=== PATIENT | female | born 1945 | race Caucasian/White ===

== ENCOUNTER 2017-11-18 16:37 | Observation (INO) | payer MEDICARE ==
[2017-11-18] MEDS ORDERED: SODIUM CHLORIDE 0.9% 500 ML IV STA (16:46)
[2017-11-18] MEDS ORDERED: SODIUM CHLORIDE 0.9% 1,000 ML IV STA (16:46)
[2017-11-18] MEDS ORDERED: RX INFO: IV CONTRAST WAS GIVEN 1 EACH MISC MISCELLANE PRN (16:46)
[2017-11-18 16:54] LABS: Glucose,Whole Blood 101 mg/dL (75-99)
[2017-11-18] MEDS ORDERED: ASPIRIN 325 MG TAB PO STA (16:59)
--- NOTE | 2017-11-18 16:59 | ED ---
General Adult HPI - General Chief complaint: Neuro Symptoms/Deficit Stated complaint: Facial Numbness Time Seen by Provider: 11/18/17 16:46 Source: patient, family, RN notes reviewed, old records reviewed Mode of arrival: wheelchair Limitations: no limitations - History of Present Illness Initial comments: This is a 72-year-old female to the ER for evaluation today. This patient presents for evaluation regards to neurological complaint right-sided facial numbness. Patient also spells like she felt a taxi to the right. Patient has history of Parkinson's disease occasionally gets significant neurological issues. Patient denies headache chest pain shortness of breath. No abdominal pain. No recent change in medications, symptoms started this morning with her legs and then about an hour prior to arrival with her face. - Related Data Home Medications Medication Instructions Recorded Confirmed Aspirin 325 mg PO DAILY 11/18/17 11/18/17 Carbidopa-Levodopa 10-100 mg 1 tab PO TID 11/18/17 11/18/17 [Sinemet 10-100] Carvedilol [Coreg] 6.25 mg PO BID 11/18/17 11/18/17 Clopidogrel [Plavix] 75 mg PO DAILY 11/18/17 11/18/17 Indomethacin [Indocin] 25 mg PO TID PRN 11/18/17 11/18/17 Lisinopril [Zestril] 2.5 mg PO DAILY 11/18/17 11/18/17 Nitroglycerin Sl Tabs [Nitrostat] 0.4 mg SUBLINGUAL Q5M PRN 11/18/17 11/18/17 Simvastatin [Zocor] 40 mg PO HS 11/18/17 11/18/17 Allergies Allergy/AdvReac Type Severity Reaction Status Date / Time No Known Allergies Allergy Verified 11/18/17 16:54 Review of Systems ROS Statement: Those systems with pertinent positive or pertinent negative responses have been documented in the HPI. ROS Other: All systems not noted in ROS Statement are negative. Past Medical History Past Medical History: Coronary Artery Disease (CAD), Hyperlipidemia, Hypertension, Myocardial Infarction (ID) Additional Past Medical History / Comment(s): Parkinson's History of Any Multi-Drug Resistant Organisms: None Reported Past Surgical History: Coronary Bypass/CABG, Heart Catheterization With Stent Past Psychological History: No Psychological Hx Reported Smoking Status: Never smoker Past Alcohol Use History: None Reported Past Drug Use History: None Reported General Exam - General Exam Comments Initial Comments: NIH of 0 Limitations: no limitations General appearance: alert, in no apparent distress Head exam: Present: atraumatic, normocephalic, normal inspection Eye exam: Present: normal appearance, PERRL, EOMI. Absent: scleral icterus, conjunctival injection, periorbital swelling ENT exam: Present: normal exam, mucous membranes moist Neck exam: Present: normal inspection. Absent: tenderness, meningismus, lymphadenopathy Respiratory exam: Present: normal lung sounds bilaterally. Absent: respiratory distress, wheezes, rales, rhonchi, stridor Cardiovascular Exam: Present: regular rate, normal rhythm, normal heart sounds. Absent: systolic murmur, diastolic murmur, rubs, gallop, clicks GI/Abdominal exam: Present: soft, normal bowel sounds. Absent: distended, tenderness, guarding, rebound, rigid Extremities exam: Present: normal inspection, full ROM, normal capillary refill. Absent: tenderness, pedal edema, joint swelling, calf tenderness Back exam: Present: normal inspection Neurological exam: Present: alert, oriented X3, CN II-XII intact Psychiatric exam: Present: normal affect, normal mood Skin exam: Present: warm, dry, intact, normal color. Absent: rash Course Vital Signs 11/18/17 16:40 Temperature 97.6 F Pulse Rate 63 Respiratory 16 Rate Blood Pressure 160/76 O2 Sat by Pulse 99 Oximetry - Reevaluation(s) Reevaluation #1: 11/18/17 17:56 Patient's symptoms seem to get out of the, and go throughout ER stay EKG Findings - EKG Comments: EKG Findings:: EKG shows normal sinus rhythm rate of 60, MS 138, QRS 104, QTC 4: 30 Medical Decision Making - Medical Decision Making 72 female the ER for evaluation regards to possible CVA, TIA. Patient's symptoms of right-sided facial numbness seem to come and go. No appreciated ataxia on exam. Patient be admitted for neurological consultation - Lab Data Result diagrams: 11/18/17 16:50 11/18/17 16:50 Lab Results 11/18/17 11/18/17 11/18/17 Range/Units 16:50 16:50 16:50 WBC 6.5 (3.8-10.6) k/uL RBC 4.75 (3.80-5.40) m/uL Hgb 13.5 (11.4-16.0) gm/dL Hct 40.3 (34.0-46.0) % MCV 84.8 (80.0-100.0) fL MCH 28.4 (25.0-35.0) pg MCHC 33.5 (31.0-37.0) g/dL RDW 13.6 (11.5-15.5) % Plt Count 240 (150-450) k/uL Neutrophils % 58 % Lymphocytes % 35 % Monocytes % 4 % Eosinophils % 2 % Basophils % 0 % Neutrophils # 3.8 (1.3-7.7) k/uL Lymphocytes # 2.3 (1.0-4.8) k/uL Monocytes # 0.2 (0-1.0) k/uL Eosinophils # 0.1 (0-0.7) k/uL Basophils # 0.0 (0-0.2) k/uL PT (9.0-12.0) sec INR (<1.2) APTT (22.0-30.0) sec Sodium 145 (137-145) mmol/L Potassium 4.0 (3.5-5.1) mmol/L Chloride 104 (98-107) mmol/L Carbon Dioxide 30 (22-30) mmol/L Anion Gap 11 mmol/L BUN 15 (7-17) mg/dL Creatinine 0.95 (0.52-1.04) mg/dL Est GFR (MDRD) Af Amer >60 (>60 ml/min/1.73 sqM) Est GFR (MDRD) Non-Af 58 (>60 ml/min/1.73 sqM) Glucose 101 H (74-99) mg/dL POC Glucose (mg/dL) (75-99) mg/dL POC Glu Metal Sash Setter ID Calcium 9.5 (8.4-10.2) mg/dL Total Bilirubin 0.7 (0.2-1.3) mg/dL AST 25 (14-36) U/L ALT 14 (9-52) U/L Alkaline Phosphatase 84 (38-126) U/L Total Creatine Kinase 42 (30-135) U/L CK-MB (CK-2) 0.8 (0.0-2.4) ng/mL CK-MB (CK-2) Rel Index 1.9 Troponin I <0.012 (0.000-0.034) ng/mL Total Protein 7.1 (6.3-8.2) g/dL Albumin 4.1 (3.5-5.0) g/dL 11/18/17 11/18/17 Range/Units 16:50 16:50 WBC (3.8-10.6) k/uL RBC (3.80-5.40) m/uL Hgb (11.4-16.0) gm/dL Hct (34.0-46.0) % MCV (80.0-100.0) fL MCH (25.0-35.0) pg MCHC (31.0-37.0) g/dL RDW (11.5-15.5) % Plt Count (150-450) k/uL Neutrophils % % Lymphocytes % % Monocytes % % Eosinophils % % Basophils % % Neutrophils # (1.3-7.7) k/uL Lymphocytes # (1.0-4.8) k/uL Monocytes # (0-1.0) k/uL Eosinophils # (0-0.7) k/uL Basophils # (0-0.2) k/uL PT 10.0 (9.0-12.0) sec INR 1.0 (<1.2) APTT 23.1 (22.0-30.0) sec Sodium (137-145) mmol/L Potassium (3.5-5.1) mmol/L Chloride (98-107) mmol/L Carbon Dioxide (22-30) mmol/L Anion Gap mmol/L BUN (7-17) mg/dL Creatinine (0.52-1.04) mg/dL Est GFR (MDRD) Af Amer (>60 ml/min/1.73 sqM) Est GFR (MDRD) Non-Af (>60 ml/min/1.73 sqM) Glucose (74-99) mg/dL POC Glucose (mg/dL) 101 H (75-99) mg/dL POC Glu Metal Sash Setter ID [place] Calcium (8.4-10.2) mg/dL Total Bilirubin (0.2-1.3) mg/dL AST (14-36) U/L ALT (9-52) U/L Alkaline Phosphatase (38-126) U/L Total Creatine Kinase (30-135) U/L CK-MB (CK-2) (0.0-2.4) ng/mL CK-MB (CK-2) Rel Index Troponin I (0.000-0.034) ng/mL Total Protein (6.3-8.2) g/dL Albumin (3.5-5.0) g/dL - Radiology Data Radiology results: report reviewed (CT CT brain is negative), image reviewed Disposition Clinical Impression: Transient cerebral ischemia Disposition: ADMITTED IP TO THIS HOSP Condition: Fair Referrals: Conrado Norman Jr, DO [Primary Care Provider] - 1-2 days
[2017-11-18 17:00] LABS: Basophils % (A) 0 %; Eosinophils # (A) 0.1 k/uL (0-0.7); Eosinophils % (A) 2 %; HCT 40.3 % (34.0-46.0); HGB 13.5 gm/dL (11.4-16.0); Lymphocytes # (A) 2.3 k/uL (1.0-4.8); Lymphocytes % (A) 35 %; MCH 28.4 pg (25.0-35.0); MCHC 33.5 g/dL (31.0-37.0); MCV 84.8 fL (80.0-100.0); Mean Platelet Volume 6.5; Monocytes # (A) 0.2 k/uL (0-1.0); Monocytes % (A) 4 %; Neutrophils # (A) 3.8 k/uL (1.3-7.7); Neutrophils % (A) 58 %; Platelet Count 240 k/uL (150-450); RBC 4.75 m/uL (3.80-5.40); RDW 13.6 % (11.5-15.5); WBC 6.5 k/uL (3.8-10.6)
[2017-11-18 17:09] LABS: Partial Thromboplastin Time 23.1 sec (22.0-30.0)
[2017-11-18 17:10] LABS: ALT 14 U/L (9-52); AST 25 U/L (14-36); Albumin 4.1 g/dL (3.5-5.0); Alkaline Phosphatase 84 U/L (38-126); Anion Gap 11 mmol/L; Blood Urea Nitrogen 15 mg/dL (7-17); Calcium 9.5 mg/dL (8.4-10.2); Carbon Dioxide 30 mmol/L (22-30); Chloride 104 mmol/L (98-107); Glucose 101 mg/dL (74-99); Sodium 145 mmol/L (137-145); Total Bilirubin 0.7 mg/dL (0.2-1.3); Total Protein 7.1 g/dL (6.3-8.2)
--- NOTE | 2017-11-18 17:14 | CT ---
EXAMINATION TYPE: CT brain wo con for TPA DATE OF EXAM: 11/18/2017 COMPARISON: NONE HISTORY: Neuro deficits. CT DLP: 952.7 mGycm Automated exposure control for dose reduction was used. FINDINGS: Ventricles of normal size. There is no mass effect nor midline shift. There is no sign of intracrania l hemorrhage. The calvarium is intact. IMPRESSION: NEGATIVE CT SCAN OF THE BRAIN.
[2017-11-18 17:21] LABS: Creatine Kinase 42 U/L (30-135)
[2017-11-18 17:34] LABS: Creatine Kinase MB 0.8 ng/mL (0.0-2.4); Troponin I <0.012 ng/mL (0.000-0.034)
[2017-11-18] MEDS: SODIUM CHLORIDE 0.9% 1,000 ML IV SCH (17:56)
--- NOTE | 2017-11-18 18:00 | CT ---
EXAMINATION TYPE: CT angio head neck DATE OF EXAM: 11/18/2017 HISTORY: Neuro deficits. COMPARISON: None CT DLP: 1400.1 mGycm. Automated Exposure Control for Dose Reduction was Utilized. TECHNIQUE: CTA scan of the neck is performed with IV Contrast, patient injected with 65ml mL of Omni paque 350, axial images are obtained, coronal and sagittal reformatted images are reviewed. Three-D r econstructed images are created on an independent workstation and reviewed. FINDINGS: There is normal branching pattern of the great vessels on the aortic arch. There is bilateral arteria l flow in the vertebral arteries. There is arterial flow in the common internal and external carotid arteries. There is tortuous right carotid artery. There is wide patency of the carotid artery bifurca tions. I see no evidence of stenosis. There is no evidence of carotid dissection. There is arterial flow in the anterior middle and posterior cerebral arteries. There is arterial flow in the vertebrobasilar artery system. There is normal contrast opacification of the venous sinuses. I see no evidence of aneurysm or neovascularity. There is no mass effect. There is no sign of intracr anial arterial stenosis. IMPRESSION: Negative CT angiogram of the head and neck. No evidence of any stenosis.
--- NOTE | 2017-11-18 18:41 | XR ---
EXAMINATION TYPE: XR chest 2V DATE OF EXAM: 11/18/2017 COMPARISON: 02/27/2010 HISTORY: Right-sided numbness TECHNIQUE: Frontal and lateral views of the chest are obtained. FINDINGS: There is no heart failure nor confluent pneumonic infiltrate. There are sternal wires. The re are chest leads. Costophrenic angles are clear. IMPRESSION: No active cardiopulmonary disease. No change.
[2017-11-18] MEDS ORDERED: ATORVASTATIN 80 MG TAB PO SCH (21:00)
[2017-11-18] MEDS: ATORVASTATIN 20 MG TAB PO SCH (21:21)
[2017-11-18] MEDS: CARVEDILOL 6.25 MG TAB PO SCH (21:21)
[2017-11-18] MEDS: LISINOPRIL 2.5 MG TAB PO SCH (21:21)
[2017-11-18] MEDS: CARBIDOPA-LEVODOPA 10-100 MG 1 EACH TAB PO SCH (21:22)
[2017-11-19] MEDS: SODIUM CHLORIDE 0.9% 1,000 ML IV SCH (04:30)
[2017-11-19] MEDS: CARVEDILOL 6.25 MG TAB PO SCH ×2 (07:02→17:28)
[2017-11-19] MEDS ORDERED: ASPIRIN 325 MG TAB PO SCH (09:00)
[2017-11-19] MEDS: LISINOPRIL 2.5 MG TAB PO SCH (09:13)
[2017-11-19] MEDS: CLOPIDOGREL 75 MG TAB PO SCH (09:13)
[2017-11-19] MEDS: ASPIRIN 325 MG TAB PO SCH (09:13)
[2017-11-19] MEDS: CARBIDOPA-LEVODOPA 10-100 MG 1 EACH TAB PO SCH ×4 (09:13→20:50)
--- NOTE | 2017-11-19 12:22 | P.HPIM ---
History of Present Illness H&P Date: 11/19/17 72-year-old female who presented to the emergency room on 11/18/2017 with a chief complaint of right-sided facial numbness. The patient describes it as her face felt "frozen". She states she also was experiencing numbness to her right upper extremity. She states she became worried when the symptoms did not dissipate and she decided to come to the emergency room for further evaluation. The patient has a history of coronary artery disease, hyperlipidemia, hypertension, myocardial infarction, and Parkinson's disease. The patient states that she saw her neurologist a couple weeks ago, Dr. Osborne, and was started on Requip 0.5mg BID. In the emergency room, a computed tomography scan of the brain was completed which was negative for acute process. Chest x-ray was completed which was negative for acute process. CT angio of the head and neck was completed which was negative for evidence of stenosis. EKG was completed revealing sinus mechanism. Laboratory studies reveal white count of 6.5, hemoglobin 13.5, platelet count 240, INR 1.0, sodium 145, potassium 4.0, BUN 15, creatinine 0.95 , glucose 101, LFTs within normal limits, troponin negative 1. She was admitted to the hospital under the care of Dr. Norman. Consultations were placed to neurology. Review of Systems GENERAL: Patient denies fever. Denies chills. EYES: Denies blurred vision. Denies vision changes. Denies eye pain. EARS, NOSE, MOUTH, & THROAT: Positive for numbness to right side of face. Denies headache. Denies sore throat. Denies ear pain. RESPIRATORY: Denies cough. Denies shortness of breath. Denies sputum production. Denies hemoptysis. CARDIOVASCULAR: Denies chest pain or pressure. Denies palpitations. Denies arrhythmias. GASTROINTESTINAL: Denies abdominal pain. Denies diarrhea. Denies constipation. Denies nausea. Denies vomiting. Denies heartburn. Denies blood in the stool. GENITOURINARY: Denies urinary frequency. Denies burning. Denies dysuria. Denies cloudy urine. Denies blood in the urine. MUSCULOSKELETAL: Denies myalgias. Denies joint swelling. Denies decreased range of motion beyond patients baseline. INTEGUMENTARY: Positive for numbness of right upper extremity, which has resolved. Denies pruitis. Denies rash. PSYCHIATRIC: Denies suicidal or homicial ideations. ENDOCRINE: Denies weight change. Denies polydipsia. Denies polyuria. HEMATOLOGIC: Denies bleeding disorders. Past Medical History Past Medical History: Coronary Artery Disease (CAD), Cancer, Chest Pain / Angina , Hyperlipidemia, Hypertension, Myocardial Infarction (PR), Osteoarthritis (OA) Additional Past Medical History / Comment(s): Parkinson's , squamous cell skin ca rt cheek, Last Myocardial Infarction Date:: unk History of Any Multi-Drug Resistant Organisms: None Reported Past Surgical History: Appendectomy, Coronary Bypass/CABG, Heart Catheterization With Stent, Hysterectomy Additional Past Surgical History / Comment(s): several heart -[id number], 08-29, 03-22-14. pt stated "i have 4 or 5 stents, triple vessel cabg, fernando cataracts,colonoscopy, sqaumous cell skin ca removed from rt cheek. Past Anesthesia/Blood Transfusion Reactions: Motion Sickness Additional Past Anesthesia/Blood Transfusion Reaction / Comment(s): clausterphobia Date of Last Stent Placement:: 2013 Smoking Status: Never smoker - Past Family History Mother Family Medical History: Cancer Additional Family Medical History / Comment(s): cervical cancer. from sepsis Father Family Medical History: Congestive Heart Failure (CHF), CVA/TIA, Myocardial Infarction (PR) Medications and Allergies Home Medications Medication Instructions Recorded Confirmed Type Aspirin 325 mg PO DAILY 11/18/17 11/18/17 History Carbidopa-Levodopa 10-100 mg 1 tab PO QID 11/18/17 11/18/17 History [Sinemet 10-100] Carvedilol [Coreg] 6.25 mg PO BID 11/18/17 11/18/17 History Clopidogrel [Plavix] 75 mg PO DAILY 11/18/17 11/18/17 History Lisinopril [Zestril] 2.5 mg PO DAILY 11/18/17 11/18/17 History Nitroglycerin Sl Tabs [Nitrostat] 0.4 mg SUBLINGUAL Q5M PRN 11/18/17 11/18/17 History Simvastatin [Zocor] 40 mg PO HS 11/18/17 11/18/17 History rOPINIRole HCL [Requip] 0.5 mg PO BID 11/18/17 11/18/17 History Allergies Allergy/AdvReac Type Severity Reaction Status Date / Time No Known Allergies Allergy Verified 11/18/17 16:54 Physical Exam Vitals: Vital Signs Temp Pulse Pulse Resp BP BP Pulse Ox 11/19/17 11:42 97.1 F L 51 L 20 135/72 96 11/19/17 07:59 97 F L 55 L 20 129/65 96 11/19/17 04:20 98.5 F 53 L 18 132/63 96 11/19/17 04:00 16 11/18/17 23:17 71 16 11/18/17 23:16 71 18 116/83 97 11/18/17 19:30 98.0 F 62 17 185/77 97 11/18/17 18:49 97.8 F 60 16 155/67 97 11/18/17 17:59 63 18 143/68 97 11/18/17 16:40 97.6 F 63 16 160/76 99 Intake and Output 11/18/17 11/19/17 11/19/17 22:59 06:59 14:59 Intake Total 390 1140 180 Balance 390 1140 180 Intake: Intake, IV Titration 150 900 Amount Sodium Chloride 0.9% 1, 150 900 000 ml @ 100 mls/hr IV . Q10H LUIS MANUEL Rx#:[id number] Oral 240 240 180 Other: Voiding Method Toilet # Voids 2 4 Weight 88.451 kg 90.4 kg GENERAL: This is a 72-year-old female in no apparent distress at the time of examination. Pleasant and cooperative. HEENT: Slight right-sided facial droop present. Speech is clear. Head is atraumatic, normocephalic. Pupils are equal, round, and reactive to light. Sclerae anicteric. Conjunctivae are clear. Mucus membranes of the mouth are moist. Neck is supple. RESPIRATORY: Clear to ausculation. No wheezes, rales, or rhonchi. No use of accessory muscles. Patient maintaining oxygen saturation greater than 92%. No chest wall tenderness is noted on palpation or with deep breathing. CARDIOVASCULAR: Regular rate and rhythm. S1 and S2 noted. No JVD noted. No S3 or S4 noted. GASTROINTESTINAL: No distention noted. Abdomen soft and round. Normal active bowel sounds auscultated x 4 quadrants. No pain or tenderness noted upon palpation. INTEGUMENTARY: No cyanosis. No jaundice. No rashes noted. No cellulitis noted. EXTREMITIES: Resting tremor noted to right upper extremity. 2+ peripheral pulses. No evidence of peripheral edema. No calf tenderness noted. NEUROLOGIC: Cranial nerves II-XII intact. PSYCHIATRIC: Awake, alert, and oriented X 3. Appropriate affect. Intact judgement and insight. Results CBC & Chem 7: 11/18/17 16:50 11/18/17 16:50 Labs: Abnormal Lab Results - Last 24 Hours (Table) 11/18/17 11/18/17 Range/Units 16:50 16:50 Glucose 101 H (74-99) mg/dL POC Glucose (mg/dL) 101 H (75-99) mg/dL Thrombosis Risk Factor Assmnt - Choose All That Apply Any of the Below Risk Factors Present?: Yes Each Factor Represents 1 point: Obesity (BMI >25), Swollen legs (current) Other Risk Factors: Yes Each Risk Factor Represents 2 Points: Age 61-74 years, Malignancy Other congenital or acquired thrombophilia - If yes, enter type in comment: No Thrombosis Risk Factor Assessment Total Risk Factor Score: 6 Thrombosis Risk Factor Assessment Level: High Risk Assessment and Plan Plan: ASSESSMENT: Right side facial numbness and right upper extremity numbness, suspect transient ischemic attack Coronary artery disease with previous stent placement 3 and previous CABG 3 Essential hypertension Hyperlipidemia Parkinson's disease Osteoarthritis Obesity: BMI 35.3 PLAN: -Neurology on consult. Await further recommendations and input -Neuro checks every 4 hours -DC IV fluids as patient is tolerating PO intake -Home meds as appropriate -Monitor labs -Activity as tolerated -PT/OT consult -GI prophylaxis: Protonix 40 mg by mouth daily -DVT prophylaxis: Venodyne's to bilateral lower extremities -Monitor vital signs and address as appropriate -Discharge planning: Patient lives at home independently with female roommate -Further recommendations pending patient's course Nurse practitioner note has been reviewed by physician. Signing provider agrees with the documented findings, assessment, and plan of care.
[2017-11-19 12:48] LABS: Cholesterol 170 mg/dL (<200); HDL Cholesterol 33 mg/dL (40-60)
[2017-11-19 12:57] LABS: Triglycerides 579 mg/dL (<150)
--- NOTE | 2017-11-19 17:39 | P.CNNES ---
History of Present Illness Consult date: 11/19/17 Reason for Consult: Patient with right facial numbness and possible TIA. History of Present Illness: This patient is a 72-year-old right-handed white female who was brought into the emergency room yesterday at about 3:30 in the afternoon with symptoms of acute right facial numbness and right arm numbness. Symptoms came on suddenly at about 3:30 yesterday afternoon. She was seen in the emergency room at [facility] by Dr. Pryor who evaluated her. She was found to have evidence of ongoing symptoms of right facial numbness. She was sent for emergency computed tomography scan of the brain and CT a angiogram of the head and neck. CAT scan of the brain was reported negative for any acute changes. CTA angiogram of the head and neck came back negative with no evidence of any stenosis. Patient's symptoms did gradually resolve yesterday. This morning she states she did have slight right facial numbness which only lasted several minutes and has not had any recurrence. The right arm numbness has completely resolved. Patient has a history of underlying Parkinson's disease. She has been treated for this condition and is currently on Sinemet and Requip. She feels her Parkinson's condition has remained stable. She denies any recent history of falls. She does have a history of stroke in the past. She has been taking Plavix 75 mg daily for secondary stroke prevention. She is also on a statin as well and her last laboratory testing was reportedly within normal range. Patient states she has been up in a bleeding and has had no weakness on her right side. The numbness as noted has resolved and only occur once this morning. She is very anxious to be going home. We recommended that she should have an MRI of the brain for further evaluation. Patient states she is unable to have MRI at this institution and she tried previously and was severely claustrophobic. She is only able to have MRI of the brain done at an open MRI Center. Apparently 5 years ago she had the MRI which showed some nonspecific changes. Her neurological examination at this time is nonfocal. We would recommend that she have a MRI of the brain done at the open MRI Center in [facility] when she is discharged from hospital. Patient is to continue on Plavix at this time for secondary stroke prevention. Neurology is now been consulted for further evaluation and recommendations. Review of Systems Constitutional: Denies chills, Denies fever Eyes: denies blurred vision, denies pain Ears, nose, mouth and throat: Denies headache, Denies sore throat Cardiovascular: Denies chest pain, Denies shortness of breath Respiratory: Denies cough Gastrointestinal: Denies abdominal pain, Denies diarrhea, Denies nausea, Denies vomiting Genitourinary: Denies dysuria, Denies hematuria Musculoskeletal: Denies myalgias Integumentary: Denies pruritus, Denies rash Neurological: Reports paresthesias, Reports tremors, Denies numbness, Denies weakness Psychiatric: Denies anxiety, Denies depression Endocrine: Denies fatigue, Denies weight change Past Medical History Past Medical History: Coronary Artery Disease (CAD), Cancer, Chest Pain / Angina , Hyperlipidemia, Hypertension, Myocardial Infarction (AL), Osteoarthritis (OA) Additional Past Medical History / Comment(s): Parkinson's , squamous cell skin ca rt cheek, Last Myocardial Infarction Date:: unk History of Any Multi-Drug Resistant Organisms: None Reported Past Surgical History: Appendectomy, Coronary Bypass/CABG, Heart Catheterization With Stent, Hysterectomy Additional Past Surgical History / Comment(s): several heart -[id number], 08-29, 03-22-14. pt stated "i have 4 or 5 stents, triple vessel cabg, fernando cataracts,colonoscopy, sqaumous cell skin ca removed from rt cheek. Past Anesthesia/Blood Transfusion Reactions: Motion Sickness Additional Past Anesthesia/Blood Transfusion Reaction / Comment(s): clausterphobia Date of Last Stent Placement:: 2013 Smoking Status: Never smoker - Past Family History Mother Family Medical History: Cancer Additional Family Medical History / Comment(s): cervical cancer. from sepsis Father Family Medical History: Congestive Heart Failure (CHF), CVA/TIA, Myocardial Infarction (AL) Medications and Allergies Home Medications Medication Instructions Recorded Confirmed Type Aspirin 325 mg PO DAILY 11/18/17 11/18/17 History Carbidopa-Levodopa 10-100 mg 1 tab PO QID 11/18/17 11/18/17 History [Sinemet 10-100] Carvedilol [Coreg] 6.25 mg PO BID 11/18/17 11/18/17 History Clopidogrel [Plavix] 75 mg PO DAILY 11/18/17 11/18/17 History Lisinopril [Zestril] 2.5 mg PO DAILY 11/18/17 11/18/17 History Nitroglycerin Sl Tabs [Nitrostat] 0.4 mg SUBLINGUAL Q5M PRN 11/18/17 11/18/17 History Simvastatin [Zocor] 40 mg PO HS 11/18/17 11/18/17 History rOPINIRole HCL [Requip] 0.5 mg PO BID 11/18/17 11/18/17 History Allergies Allergy/AdvReac Type Severity Reaction Status Date / Time No Known Allergies Allergy Verified 11/18/17 16:54 Physical Examination - Vital Signs Vital Signs: Vital Signs Temp Pulse Pulse Resp BP BP Pulse Ox 11/19/17 15:44 97 F L 55 L 20 125/60 95 11/19/17 11:42 97.1 F L 51 L 20 135/72 96 11/19/17 07:59 97 F L 55 L 20 129/65 96 11/19/17 04:20 98.5 F 53 L 18 132/63 96 11/19/17 04:00 16 11/18/17 23:17 71 16 11/18/17 23:16 71 18 116/83 97 11/18/17 19:30 98.0 F 62 17 185/77 97 11/18/17 18:49 97.8 F 60 16 155/67 97 11/18/17 17:59 63 18 143/68 97 Intake and Output 11/19/17 11/19/17 11/19/17 06:59 14:59 22:59 Intake Total 1140 420 Output Total 0 Balance 1140 420 Intake: Intake, IV Titration 900 Amount Sodium Chloride 0.9% 1, 900 000 ml @ 100 mls/hr IV . Q10H [facility] Rx#:[id number] Oral 240 420 Output: Urine 0 Other: # Voids 4 Weight 90.4 kg - Constitutional General appearance: average body habitus, cooperative - EENT EENT: PERRL, mucous membranes moist - Respiratory Respiratory: lungs clear, normal breath sounds - Cardiovascular Cardiovascular: regular rate, normal S1, normal S2 Extremities: no peripheral edema bilaterally - Gastrointestinal Gastrointestinal: normoactive bowel sounds - Integumentary Integumentary: normal - Neurologic Cranial nerve examination: PERRL, EOMI, VFF, V1/V2/V3 grossly intact, face symmetric, tongue midline, intact gag reflex, intact corneal reflex, normal palatal elevation Speech examination: intact Sensorimotor examination: intact Motor examination - right side: 45: biceps, triceps, wrist flexion, wrist extension, blockmason, hip flexors, knee extensors, dorsiflexion, toe extension (EHL) , plantarflexion Motor examination - left side: 4/5: biceps, triceps, wrist flexion, wrist extension, blockmason, hip flexors, knee extensors, dorsiflexion, toe extension (EHL) , plantarflexion Detailed sensory examination: intact Reflex and gait examination: intact Reflexes: 1+: ankle, bicep, knee, tricep - Musculoskeletal Musculoskeletal: no pain - Psychiatric Psychiatric: mood/affect appropriate, cooperative Results - Laboratory Findings CBC and BMP: 11/18/17 16:50 11/18/17 16:50 Abnormal Lab Findings: Abnormal Labs 11/18/17 11/18/17 11/18/17 16:50 16:50 16:50 Glucose 101 H POC Glucose (mg/dL) 101 H Triglycerides 579 H HDL Cholesterol 33 L Assessment and Plan (1) Parkinsons disease Current Visit: Yes Status: Acute Code(s): G20 - PARKINSON'S DISEASE SNOMED Code(s): 18879194 (2) Transient cerebral ischemia Current Visit: Yes Status: Acute Code(s): G45.9 - TRANSIENT CEREBRAL ISCHEMIC ATTACK, UNSPECIFIED SNOMED Code(s): 797120557 Plan: This patient is a 72-year-old right-handed white female admitted to hospital with episode of right face and arm numbness that came on yesterday afternoon. She was brought into the emergency room and underwent extensive evaluation including computed tomography scan of the brain and CTA angiogram of the head and neck. Both of these studies were negative. Her symptoms of right face and arm numbness did resolve today. She only had a slight episode of right face numbness which also has completely resolved this morning. She is currently on Plavix for secondary stroke prevention. Her clinical history is consistent with a left hemispheric TIA. We have recommended that she undergo an MRI of the brain however she is severely claustrophobic and was unable to have MRI done here locally. We would recommend that the MRI be done at the [facility] center and worn soon after discharge from hospital. She is to continue on Plavix for secondary stroke prevention. Her neurological examination at this time is stable. She is to continue on Sinemet and Requip for treatment of her Parkinson's disease. Overall prognosis at this time remains guarded. We will continue to follow her progress closely during this admission. Time with Patient: Greater than 30
[2017-11-19] MEDS: ATORVASTATIN 20 MG TAB PO SCH (20:50)
[2017-11-20] MEDS: CARVEDILOL 6.25 MG TAB PO SCH (06:36)
[2017-11-20] MEDS ORDERED: PANTOPRAZOLE 40 MG TABLET PO SCH (07:30)
[2017-11-20] MEDS: ASPIRIN 325 MG TAB PO SCH (07:48)
[2017-11-20] MEDS: LISINOPRIL 2.5 MG TAB PO SCH (07:49)
[2017-11-20] MEDS: CLOPIDOGREL 75 MG TAB PO SCH (07:49)
[2017-11-20] MEDS: CARBIDOPA-LEVODOPA 10-100 MG 1 EACH TAB PO SCH ×2 (07:49→12:21)
[2017-11-20 08:22] VITALS: RESP 16
[2017-11-20 11:10] VITALS: BP 141/71; PULSE 52; TEMP 97
--- NOTE | 2017-11-20 12:21 | P.DS ---
Providers Date of admission: 11/18/17 16:59 Expected date of discharge: 11/20/17 Attending physician: Conrado Norman Consults: 11/18/17 17:00 Consult Physician Routine Consulting Provider: Marge Delgado Consult Reason/Comments: cva Do you want consulting provider notified?: Yes Primary care physician: [facility] Course: 72-year-old female who presented to the emergency room on 11/18/2017 with a chief complaint of right-sided facial numbness. The patient describes it as her face felt "frozen". She states she also was experiencing numbness to her right upper extremity. She states she became worried when the symptoms did not dissipate and she decided to come to the emergency room for further evaluation. The patient has a history of coronary artery disease, hyperlipidemia, hypertension, myocardial infarction, and Parkinson's disease. The patient states that she saw her neurologist a couple weeks ago, Dr. Osborne, and was started on Requip 0.5mg BID. In the emergency room, a computed tomography scan of the brain was completed which was negative for acute process. Chest x-ray was completed which was negative for acute process. CT angio of the head and neck was completed which was negative for evidence of stenosis. EKG was completed revealing sinus mechanism. Laboratory studies reveal white count of 6.5, hemoglobin 13.5, platelet count 240, INR 1.0, sodium 145, potassium 4.0, BUN 15, creatinine 0.95 , glucose 101, LFTs within normal limits, troponin negative 1. Patient was evaluated by neurologist, Dr. Delgado, who is recommending MRI of the brain. Patient is very claustrophobic and is unable to undergo MRI at current facility. Patient has previously completed an open MRI in a facility in [place]. The patient's facial numbness and right upper arm and he numbness have resolved at this time. Neurological examination is within normal limits. The patient was deemed stable for discharge. She is to follow up on an outpatient basis with Dr. Norman and her neurologist, Dr. Osborne. Patient was given a paper prescription for MRI of the brain without contrast to be completed at open MRI center in [place] where patient has previously had MRI completed. DISCHARGE DIAGNOSIS: Right side facial numbness and right upper extremity numbness, likely left hemispheric transient ischemic attack Coronary artery disease with previous stent placement 3 and previous CABG 3 Essential hypertension Hyperlipidemia Parkinson's disease Osteoarthritis Obesity: BMI 35.3 Nurse practitioner note has been reviewed by physician. Signing provider agrees with the documented findings, assessment, and plan of care. Patient Condition at Discharge: Stable Plan - Discharge Summary Discharge Rx Participant: No New Discharge Prescriptions: Continue Simvastatin [Zocor] 40 mg PO HS Nitroglycerin Sl Tabs [Nitrostat] 0.4 mg SUBLINGUAL Q5M PRN PRN Reason: Chest Pain Lisinopril [Zestril] 2.5 mg PO DAILY Clopidogrel [Plavix] 75 mg PO DAILY Carvedilol [Coreg] 6.25 mg PO BID Carbidopa-Levodopa 10-100 mg [Sinemet 10-100 mg] 1 tab PO QID Aspirin 325 mg PO DAILY rOPINIRole HCL [Requip] 0.5 mg PO BID Discharge Medication List Aspirin 325 mg PO DAILY 11/18/17 [History] Carbidopa-Levodopa 10-100 mg [Sinemet 10-100 mg] 1 tab PO QID 11/18/17 [History] Carvedilol [Coreg] 6.25 mg PO BID 11/18/17 [History] Clopidogrel [Plavix] 75 mg PO DAILY 11/18/17 [History] Lisinopril [Zestril] 2.5 mg PO DAILY 11/18/17 [History] Nitroglycerin Sl Tabs [Nitrostat] 0.4 mg SUBLINGUAL Q5M PRN 11/18/17 [History] Simvastatin [Zocor] 40 mg PO HS 11/18/17 [History] rOPINIRole HCL [Requip] 0.5 mg PO BID 11/18/17 [History] Follow up Appointment(s)/Referral(s): Conrado Norman Jr, DO [Primary Care Provider] - 11/24/17 11:15 am Gumaro Zuluaga MD [STAFF PHYSICIAN] - 12/16/17 11:30 am Patient Instructions/Handouts: Transient Ischemic Attack (DC), Magnetic Resonance Imaging (DC) Activity/Diet/Wound Care/Special Instructions: Outpatient open MRI. Patient was given paper prescription for MRI of the brain without contrast Discharge Disposition: HOME SELF-CARE
== END 2017-11-20 13:26 | disposition home or self-care (01) ==
LOC: EC 16:37 → 6SEL 16:59
PROVIDERS: ADMIT Family Medicine; ATTEND Family Medicine
DX: R20.0 Anesthesia of skin (principal); G20 Parkinson's disease; I25.10 Atherosclerotic heart disease of native coronary artery without angina pectoris; I10 Essential (primary) hypertension; E78.5 Hyperlipidemia, unspecified; F40.240 Claustrophobia; E66.9 Obesity, unspecified; Z68.35 Body mass index [BMI] 35.0-35.9, adult; M19.90 Unspecified osteoarthritis, unspecified site; Z95.1 Presence of aortocoronary bypass graft; Z95.5 Presence of coronary angioplasty implant and graft; I25.2 Old myocardial infarction; Z79.82 Long term (current) use of aspirin; Z79.02 Long term (current) use of antithrombotics/antiplatelets; Z79.899 Other long term (current) drug therapy; Z86.73 Personal history of transient ischemic attack (TIA), and cerebral infarction without residual deficits; Z80.49 Family history of malignant neoplasm of other genital organs; Z85.828 Personal history of other malignant neoplasm of skin; Z82.49 Family history of ischemic heart disease and other diseases of the circulatory system
CPT/HCPCS: 99285 ×2; 96360 ×2; 96361 ×4; 36415; 93005; 97162; 97165; 92523; 80061; 80053; 82550; 82553; 84484; 85025; 85610; 85730; 71046; 70496; 70450; 70498; G0378 ×3; Q9967

== ENCOUNTER → 2018-03-24 | Outpatient (CLI) | payer MEDICARE ==
--- NOTE | 2018-03-24 16:31 | MR ---
EXAMINATION TYPE: MR angio head wo con DATE OF EXAM: 03/24/2018 COMPARISON: CT brain 11/18/2017, MRI brain 01/25/2018 HISTORY: Abnormal findings on diagnostic imaging of other parts, right side weakness TECHNIQUE: Time of flight images focusing on the [place] were performed without contrast. FINDINGS: Kadie are normal. Basilar artery is unremarkable. Posterior cerebral vasculature appears normal. The internal carotid arteries bifurcate normally and A1 and M1 segments. The 2 segments appear normal . The anterior communicating artery is widely patent. Posterior communicating arteries are patent fernando aterally. No suspicious anomaly at the distal internal carotid arteries is evident. Three-D [id number]-uw-olayik imaging reconstructed images are reviewed. No suspicious aneurysmal dilatation is evident. No vascular malformations are identified. IMPRESSION: 1. Normal MRA [place]
== END | disposition home or self-care (01) ==
LOC: RADMRIMAIN 10:09
PROVIDERS: ATTEND Nurse Practitioner Acute Care
DX: R93.7 Abnormal findings on diagnostic imaging of other parts of musculoskeletal system (principal)
CPT/HCPCS: 70544

== ENCOUNTER → 2019-08-19 | Outpatient (CLI) | payer MEDICARE ==
--- NOTE | 2019-08-19 13:52 | US ---
EXAMINATION TYPE: US venous doppler duplex LE RT DATE OF EXAM: 08/19/2019 1:21 PM COMPARISON: NONE CLINICAL HISTORY: M71.21 Synovial cyst of popliteal space [Ramey]. Patient c/o pain in right poplitea l space following a 12 hour car ride 3 days ago. SIDE PERFORMED: Right TECHNIQUE: The lower extremity deep venous system is examined utilizing real time linear array sonog bharat with graded compression, doppler sonography and color-flow sonography. VESSELS IMAGED: External Iliac Vein (EIV) Common Femoral Vein Deep Femoral Vein Greater Saphenous Vein * Femoral Vein Popliteal Vein Small Saphenous Vein * Proximal Calf Veins (* superficial vessels) Grayscale, color doppler, spectral doppler imaging performed of the deep veins of the right lower ext remity. There is normal flow, compressibility, vascular waveforms. Right Leg: Negative for DVT, No Ramey's cyst seen. IMPRESSION: No sonographic evidence of deep venous thrombosis within the right lower extremity.
== END | disposition home or self-care (01) ==
LOC: RADUSWWP 12:44
PROVIDERS: ATTEND Physician Assistant
DX: M71.21 Synovial cyst of popliteal space [Baker], right knee (principal)

== ENCOUNTER → 2019-11-25 | Outpatient (CLI) | payer MEDICARE ==
[2019-11-25 14:58] LABS: Basophils % (A) 1 %; Eosinophils # (A) 0.2 k/uL (0-0.7); Eosinophils % (A) 3 %; HCT 39.7 % (34.0-46.0); HGB 13.1 gm/dL (11.4-16.0); Lymphocytes # (A) 1.6 k/uL (1.0-4.8); Lymphocytes % (A) 25 %; MCH 27.9 pg (25.0-35.0); MCV 84.5 fL (80.0-100.0); Mean Platelet Volume 7.1; Monocytes # (A) 0.3 k/uL (0-1.0); Monocytes % (A) 4 %; Neutrophils # (A) 4.2 k/uL (1.3-7.7); Neutrophils % (A) 65 %; Platelet Count 263 k/uL (150-450); WBC 6.3 k/uL (3.8-10.6)
[2019-11-25 18:42] LABS: ALT <8 U/L (8-44); AST 19 U/L (13-35); Albumin/Globulin Ratio 2.44 (1.60-3.17); Alkaline Phosphatase 94 U/L (41-126); Calcium 9.2 mg/dL (8.7-10.3); Carbon Dioxide 26.6 mmol/L (21.6-31.8); Chloride 107 mmol/L (96-109); Globulin 1.8 g/dL (1.6-3.3); Glucose 103 mg/dL (70-110); Non-African American GFR(CKD) 63.9 (60.0-200.0); Potassium 4.2 mmol/L (3.5-5.5); Sodium 144 mmol/L (135-145); Total Bilirubin 1.1 mg/dL (0.3-1.2); Total Protein 6.2 g/dL (6.2-8.2)
== END | disposition home or self-care (01) ==
LOC: LABWHC1 14:01
PROVIDERS: ATTEND Nurse Practitioner Acute Care
DX: E55.9 Vitamin D deficiency, unspecified (principal); R53.83 Other fatigue; R41.82 Altered mental status, unspecified; Z51.81 Encounter for therapeutic drug level monitoring
CPT/HCPCS: 36415; 80053; 82607; 84207; 85025; 87086

== ENCOUNTER → 2022-07-17 | Outpatient (CLI) | payer MEDICARE ==
--- NOTE | 2022-07-25 07:53 | MM ---
Reason for Exam: Screening (asymptomatic). Last mammogram was performed 8 year(s) and 10 month(s) ago. Patient History: Menarche at age 14. Patient has no children. 04/19/2012, U/S Discnt Right Core Biopsy on the right side. Maternal aunt had breast cancer. Risk Values: Rachel 5 year model risk: 2.0%. NCI Lifetime model risk: 4.5%. Prior Study Comparison: 03/11/2012 Bilateral MG diagnostic mammo w CAD ED - 2, [facility]. 09/08/2013 Bilateral MG diagnostic mammo w CAD ED - 2, [facility]. Tissue Density: There are scattered fibroglandular densities. Findings: Analyzed By CAD. There is no suspicious group of microcalcifications or new suspicious mass in either breast. Benign-appearing calcifications within both breasts. Overall Assessment: Benign, BI-RAD 2 Management: Screening Mammogram of both breasts in 1 year. A clinical breast exam by your physician is recommended on an annual basis and results should be correlated with mammographic findings. Electronically signed and approved by: Walter Espinoza D.O.
== END | disposition home or self-care (01) ==
LOC: RADMAMWWP 13:45
PROVIDERS: ATTEND Family Medicine
DX: Z12.31 Encounter for screening mammogram for malignant neoplasm of breast (principal); Z80.3 Family history of malignant neoplasm of breast
CPT/HCPCS: 77063; 77067

== ENCOUNTER 2023-04-22 11:34 | Inpatient (IN) | payer MEDICARE ==
--- NOTE | 2023-04-22 12:22 | CT ---
EXAMINATION TYPE: CT brain wo con DATE OF EXAM: 04/22/2023 COMPARISON: 11/18/2017 HISTORY: ams CT DLP: 1094.1 mGycm Automated exposure control for dose reduction was used. FINDINGS: Mild generalized degenerative change with low attenuation in the white matter which is nonspecific bu t most typical remote white matter microvascular ischemia. No midline shift or mass effect. No acute hemorrhage. Tiny punctate area of hyperdensity seen right b gali ganglia too small to characterize.. Intracranial atherosclerotic changes are noted. Craniocervical junction maintained. Partially empty sella turcica incidentally noted. Orbits are symm etric. Slight nasal septal deviation. No significant changes of sinusitis. Calvarium intact. IMPRESSION: DEGENERATIVE AND REMOTE ISCHEMIC WHITE MATTER CHANGE. TINY PUNCTATE HYPERDENSITY WITHIN THE BASAL SUSIE GLIA IS TOO SMALL TO CHARACTERIZE. Favor tiny calcification over petechial hemorrhage. Correlation wi MRI recommended.
--- NOTE | 2023-04-22 12:23 | XR ---
EXAMINATION TYPE: XR chest 2V DATE OF EXAM: 04/22/2023 COMPARISON: NONE TECHNIQUE: PA and lateral views submitted. HISTORY: Altered mental status FINDINGS: The lungs are clear and there is no pneumothorax, pleural effusion, or focal pneumonia. Heart enlarg ed and there are poststernotomy changes but no overt failure. Osseous structures demonstrate hypertro phic and degenerative changes of the spine. Atherosclerotic change aorta. Arthropathy of the shoulder s with diffuse osteopenia. Epicardial lead is incidentally noted. Coronary stenting suggested. IMPRESSION: 1. No acute process. 2. Cardiomegaly.
[2023-04-22 12:42] LABS: Glucose,Whole Blood 89 mg/dL (70-110)
[2023-04-22 12:54] LABS: Basophils % (A) 0 %; Eosinophils # (A) 0.1 k/uL (0-0.7); Eosinophils % (A) 2 %; HCT 37.9 % (34.0-46.0); HGB 12.3 gm/dL (11.4-16.0); Lymphocytes # (A) 1.7 k/uL (1.0-4.8); Lymphocytes % (A) 42 %; MCH 28.2 pg (25.0-35.0); MCHC 32.5 g/dL (31.0-37.0); MCV 86.6 fL (80.0-100.0); Mean Platelet Volume 7.5; Monocytes # (A) 0.2 k/uL (0-1.0); Monocytes % (A) 4 %; Neutrophils % (A) 48 %; Platelet Count 159 k/uL (150-450); RBC 4.37 m/uL (3.80-5.40); RDW 13.4 % (11.5-15.5); WBC 4.1 k/uL (3.8-10.6)
--- NOTE | 2023-04-22 13:02 | ED ---
General Adult HPI - General Chief complaint: Neuro Symptoms/Deficit Stated complaint: poss stroke Time Seen by Provider: 04/22/23 11:46 Source: patient, RN notes reviewed, old records reviewed Mode of arrival: wheelchair Limitations: no limitations - History of Present Illness Initial comments: 77-year-old female history of Parkinson's disease presents with gait instability and generalized weakness. She denies focal numbness or weakness. Triage asse ssment did report left-sided facial droop with the patient states she's had surgery on the right side of her face and she has some contraction there. She denies speech abnormalities. States that she has developed worsening gait over the past 24 hours. Denies chest pain or abdominal pain. Denies fever. Denies vomiting. - Related Data Home Medications Medication Instructions Recorded Confirmed Aspirin 325 mg PO DAILY 11/18/17 11/18/17 Carbidopa-Levodopa 10-100 mg 1 tab PO QID 11/18/17 11/18/17 [Sinemet 10-100 mg] Clopidogrel [Plavix] 75 mg PO DAILY 11/18/17 11/18/17 Nitroglycerin Sl Tabs [Nitrostat] 0.4 mg SUBLINGUAL Q5M PRN 11/18/17 11/18/17 Simvastatin [Zocor] 40 mg PO HS 11/18/17 11/18/17 carvediloL [Coreg] 6.25 mg PO BID 11/18/17 11/18/17 lisinopriL [Zestril] 2.5 mg PO DAILY 11/18/17 11/18/17 rOPINIRole HCL [Requip] 0.5 mg PO BID 11/18/17 11/18/17 Allergies Allergy/AdvReac Type Severity Reaction Status Date / Time No Known Allergies Allergy Verified 04/22/23 11:37 Review of Systems ROS Statement: Those systems with pertinent positive or pertinent negative responses have been documented in the HPI. ROS Other: All systems not noted in ROS Statement are negative. Past Medical History Past Medical History: Coronary Artery Disease (CAD), Cancer, Chest Pain / Angina, Hyperlipidemia, Hypertension, Myocardial Infarction ([place]), Osteoarthritis ([place]) Additional Past Medical History / Comment(s): Parkinson's , squamous cell skin ca rt cheek, Last Myocardial Infarction Date:: unk History of Any Multi-Drug Resistant Organisms: None Reported Past Surgical History: Appendectomy, Coronary Bypass/CABG, Heart Catheterization With Stent, Hysterectomy Additional Past Surgical History / Comment(s): several heart [id number], 08-29-11, 03-22-14. pt stated "i have 4 or 5 stents, triple vessel cabg, fernando cataracts,colonoscopy, sqaumous cell skin ca removed from rt cheek. Past Anesthesia/Blood Transfusion Reactions: Motion Sickness Additional Past Anesthesia/Blood Transfusion Reaction / Comment(s): clausterphobia Date of Last Stent Placement:: 2013 Past Psychological History: No Psychological Hx Reported Past Alcohol Use History: Occasional Past Drug Use History: Marijuana - Past Family History Mother Family Medical History: Cancer Additional Family Medical History / Comment(s): cervical cancer. from sepsis Father Family Medical History: Congestive Heart Failure (CHF), CVA/TIA, Myocardial Infarction ([place]) General Exam Limitations: no limitations General appearance: alert, in no apparent distress Head exam: Present: atraumatic, normocephalic Eye exam: Present: normal appearance, PERRL ENT exam: Present: normal exam Neck exam: Present: normal inspection Respiratory exam: Present: normal lung sounds bilaterally. Absent: respiratory distress, wheezes Cardiovascular Exam: Present: regular rate, normal rhythm GI/Abdominal exam: Present: soft. Absent: distended, tenderness Neurological exam: Present: alert, oriented X3, other (Left face does appear to droop but there is normal movement with smile. There is no limb ataxia, 5 out of 5 strength in the upper extremities.) Psychiatric exam: Present: normal affect, normal mood Skin exam: Present: warm, dry, intact Course Vital Signs 04/22/23 04/22/23 04/22/23 11:37 11:48 12:30 Temperature 98.9 F 97.5 F L Pulse Rate 68 58 L 49 L Respiratory 16 20 16 Rate Blood Pressure 121/64 94/76 O2 Sat by Pulse 97 96 97 Oximetry 04/22/23 13:15 Temperature Pulse Rate 53 L Respiratory 18 Rate Blood Pressure 114/61 O2 Sat by Pulse 96 Oximetry Medical Decision Making - Medical Decision Making Was pt. sent in by a medical professional or institution (, PA, INSTRUCTOR LOOPING, urgent care, hospital, or jail...) When possible be specific @ -No Did you speak to anyone other than the patient for history (EMS, parent, family, police, friend...)? What history was obtained from this source @ -No Did you review nursing and triage notes (agree or disagree)? Why? @ -I reviewed and agree with nursing and triage notes Were old charts reviewed (outside hosp., previous admission, EMS record, old EKG, old radiological studies, urgent care reports/EKG's, jail records)? Report findings @ -No old charts were reviewed Differential Diagnosis (chest pain, altered mental status, abdominal pain women, abdominal pain men, vaginal bleeding, weakness, fever, dyspnea, syncope, headache, dizziness, GI bleed, back pain, seizure, CVA, palpatations, mental health, musculoskeletal)? @ -Differential CVA Ischemic stroke, hemorrhagic stroke, brain tumor, atypical migraine, Wernicke's encephalopathy, seizure, multiple sclerosis, meningitis, encephalitis, hypoglycemia, Guillain-Jones, electrolytes disturbance, myasthenia gravis.... This is not meant to be an all-inclusive list EKG interpreted by me (3pts min.). @ -Sinus bradycardia rate of 52, KS interval 129, QRS duration 120, QTC 460, T- wave inversion in the inferior leads no ST segment elevation. X-rays interpreted by me (1pt min.). @ -Chest x-ray negative for focal pneumonia CT interpreted by me (1pt min.). @ -[CT without contrast showing hyperdensity within the basal ganglia, felt to be calcification but will require further imaging. U/S interpreted by me (1pt. min.). @ -None done What testing was considered but not performed or refused? (CT, X-rays, U/S, la bs)? Why? @ -None What meds were considered but not given or refused? Why? @ -None Did you discuss the management of the patient with other professionals (professionals i.e. , PA, INSTRUCTOR [employer], lab, RT, psych nurse, mental health social worker, sewer contractor, teacher, consumer safety officer, outsole caser)? Give summary @ -Sound physician group Was smoking cessation discussed for >3mins.? @ -No Was critical care preformed (if so, how long)? @ -No Were there social determinants of health that impacted care today? How? (Homelessness, low income, unemployed, alcoholism, drug addiction, transportation, low edu. Level, literacy, decrease access to med. care, long term, rehab)? @ -No Was there de-escalation of care discussed even if they declined (Discuss DNR or withdrawal of care, Hospice)? DNR status @ -No What co-morbidities impacted this encounter? (DM, HTN, Smoking, COPD, CAD, Cancer, CVA, ARF, Chemo, Hep., AIDS, mental health diagnosis, sleep apnea, morbid obesity)? @Parkinson's Was patient admitted / discharged? Hospital course, mention meds given and route, prescriptions, significant lab abnormalities, going to OR and other pertinent info. @ -[77-year-old female with Parkinson's, gait instability, generalized weakness and left-sided facial droop. Difficult to assess the severity of this facial d liu because the patient had prior surgery on the right side of her face. She has generalized weakness in both the upper extremities and lower extremities. Normal speech. She has stable vitals. Normal CBC, normal CMP, normal urinalysis per patient will benefit from admission with neurology consultation and MRI. Undiagnosed new problem with uncertain prognosis? @ -No Drug Therapy requiring intensive monitoring for toxicity (Heparin, Nitro, Insulin, Cardizem)? @ -No Were any procedures done? @ -No Diagnosis/symptom? @ -[Generalized weakness, gait instability, rule out CVA Acute, or Chronic, or Acute on Chronic? @Acute Uncomplicated (without systemic symptoms) or Complicated (systemic symptoms)? @ -[Complicated Side effects of treatment? @ -No Exacerbation, Progression, or Severe Exacerbation? @ -No Poses a threat to life or bodily function? How? (Chest pain, [place], [place], pneumonia, PE, COPD, DKA, ARF, appy, cholecystitis, CVA, Diverticulitis, Homicidal, Suicidal, threat to staff... and all critical care pts) @ -[EMS, weakness, CVA - Lab Data Result diagrams: 04/22/23 12:37 04/22/23 12:37 Lab Results 04/22/23 04/22/23 04/22/23 Range/Units 12:31 12:37 12:37 WBC 4.1 (3.8-10.6) k/uL RBC 4.37 (3.80-5.40) m/uL Hgb 12.3 (11.4-16.0) gm/dL Hct 37.9 (34.0-46.0) % MCV 86.6 (80.0-100.0) fL MCH 28.2 (25.0-35.0) pg MCHC 32.5 (31.0-37.0) g/dL RDW 13.4 (11.5-15.5) % Plt Count 159 (150-450) k/uL MPV 7.5 Neutrophils % 48 % Lymphocytes % 42 % Monocytes % 4 % Eosinophils % 2 % Basophils % 0 % Neutrophils # 2.0 (1.3-7.7) k/uL Lymphocytes # 1.7 (1.0-4.8) k/uL Monocytes # 0.2 (0-1.0) k/uL Eosinophils # 0.1 (0-0.7) k/uL Basophils # 0.0 (0-0.2) k/uL PT 11.2 (9.0-12.0) sec INR 1.1 (<1.2) APTT 25.5 (22.0-30.0) sec Sodium (137-145) mmol/L Potassium (3.5-5.1) mmol/L Chloride (98-107) mmol/L Carbon Dioxide (22-30) mmol/L Anion Gap mmol/L BUN (7-17) mg/dL Creatinine (0.52-1.04) mg/dL Est GFR (CKD-EPI)AfAm (>60 ml/min/1.73 sqM) Est GFR (CKD-EPI)NonAf (>60 ml/min/1.73 sqM) Glucose (74-99) mg/dL POC Glucose (mg/dL) 89 (70-110) mg/dL POC Glu Die Repairer Stamping Nataliia Yanes T Calcium (8.4-10.2) mg/dL Total Bilirubin (0.2-1.3) mg/dL AST (14-36) U/L ALT (4-34) U/L Alkaline Phosphatase (38-126) U/L Troponin I (0.000-0.034) ng/mL Total Protein (6.3-8.2) g/dL Albumin (3.5-5.0) g/dL Urine Color Urine Appearance (Clear) Urine pH (5.0-8.0) Ur Specific Dunlap (1.001-1.035) Urine Protein (Negative) Urine Glucose (UA) (Negative) Urine Ketones (Negative) Urine Blood (Negative) Urine Nitrite (Negative) Urine Bilirubin (Negative) Urine Urobilinogen (<2.0) mg/dL Ur Leukocyte Esterase (Negative) Urine RBC (0-5) /hpf Urine WBC (0-5) /hpf Ur Squamous Epith Cells (0-4) /hpf Hyaline Casts (0-2) /lpf Urine Mucus (None) /hpf 04/22/23 04/22/23 04/22/23 Range/Units 12:37 12:37 12:37 WBC (3.8-10.6) k/uL RBC (3.80-5.40) m/uL Hgb (11.4-16.0) gm/dL Hct (34.0-46.0) % MCV (80.0-100.0) fL MCH (25.0-35.0) pg MCHC (31.0-37.0) g/dL RDW (11.5-15.5) % Plt Count (150-450) k/uL MPV Neutrophils % % Lymphocytes % % Monocytes % % Eosinophils % % Basophils % % Neutrophils # (1.3-7.7) k/uL Lymphocytes # (1.0-4.8) k/uL Monocytes # (0-1.0) k/uL Eosinophils # (0-0.7) k/uL Basophils # (0-0.2) k/uL PT (9.0-12.0) sec INR (<1.2) APTT (22.0-30.0) sec Sodium 140 (137-145) mmol/L Potassium 4.0 (3.5-5.1) mmol/L Chloride 108 H (98-107) mmol/L Carbon Dioxide 27 (22-30) mmol/L Anion Gap 5 mmol/L BUN 19 H (7-17) mg/dL Creatinine 0.90 (0.52-1.04) mg/dL Est GFR (CKD-EPI)AfAm 73 (>60 ml/min/1.73 sqM) Est GFR (CKD-EPI)NonAf 63 (>60 ml/min/1.73 sqM) Glucose 88 (74-99) mg/dL POC Glucose (mg/dL) (70-110) mg/dL POC Glu Die Repairer Stamping ID Calcium 8.9 (8.4-10.2) mg/dL Total Bilirubin 1.0 (0.2-1.3) mg/dL AST 26 (14-36) U/L ALT 6 (4-34) U/L Alkaline Phosphatase 75 (38-126) U/L Troponin I <0.012 (0.000-0.034) ng/mL Total Protein 6.0 L (6.3-8.2) g/dL Albumin 3.7 (3.5-5.0) g/dL Urine Color Yellow Urine Appearance Clear (Clear) Urine pH 5.5 (5.0-8.0) Ur Specific [place] 1.012 (1.001-1.035) Urine Protein Negative (Negative) Urine Glucose (UA) Negative (Negative) Urine Ketones Negative (Negative) Urine Blood Small H (Negative) Urine Nitrite Negative (Negative) Urine Bilirubin Negative (Negative) Urine Urobilinogen <2.0 (<2.0) mg/dL Ur Leukocyte Esterase Negative (Negative) Urine RBC 3 (0-5) /hpf Urine WBC 1 (0-5) /hpf Ur Squamous Epith Cells <1 (0-4) /hpf Hyaline Casts 1 (0-2) /lpf Urine Mucus Rare H (None) /hpf Disposition Clinical Impression: Cerebrovascular accident (CVA), Parkinsons disease Disposition: ADMITTED IP TO THIS HOSP Condition: Stable Is patient prescribed a controlled substance at d/c from ED?: No Referrals: Alexx Clayton MD [Primary Care Provider] - 1-2 days Time of Disposition: 14:33
[2023-04-22 13:07] LABS: INR 1.1 (<1.2); Partial Thromboplastin Time 25.5 sec (22.0-30.0); Prothrombin Time 11.2 sec (9.0-12.0)
[2023-04-22 13:10] LABS: ALT 6 U/L (4-34); AST 26 U/L (14-36); African American GFR (CKD) 73 (>60 ml/min/1.73 sqM); Albumin 3.7 g/dL (3.5-5.0); Alkaline Phosphatase 75 U/L (38-126); Anion Gap 5 mmol/L; Blood Urea Nitrogen 19 mg/dL (7-17); Calcium 8.9 mg/dL (8.4-10.2); Carbon Dioxide 27 mmol/L (22-30); Chloride 108 mmol/L (98-107); Glucose 88 mg/dL (74-99); Non-African American GFR(CKD) 63 (>60 ml/min/1.73 sqM); Sodium 140 mmol/L (137-145)
[2023-04-22 14:23] LABS: Appearance,Urine Clear (Clear); Bilirubin,Urine Negative (Negative); Blood,Urine Small (Negative); Color,Urine Yellow; Glucose,Urine (UA) Negative (Negative); Hyaline Casts,Urine 1 /lpf (0-2); Ketones,Urine Negative (Negative); Leukocyte Esterase,Urine Negative (Negative); Mucus,Urine Rare /hpf; Nitrite,Urine Negative (Negative); PH, Urine 5.5 (5.0-8.0); Protein,Urine Negative (Negative); RBC,Urine 3 /hpf (0-5); Specific Gravity,Urine 1.012 (1.001-1.035); Squamous Epithelial Cell,Urine <1 /hpf (0-4); Urobilinogen,Urine <2.0 mg/dL (<2.0); WBC,Urine 1 /hpf (0-5)
[2023-04-22] MEDS ORDERED: IBUPROFEN 400 MG TAB PO PRN (14:25)
[2023-04-22] MEDS ORDERED: NALOXONE 0.4 MG/ML 1 ML VIAL IV PRN (14:25)
[2023-04-22] MEDS ORDERED: ACETAMINOPHEN TAB 325 MG TAB PO PRN (14:25)
[2023-04-22] MEDS ORDERED: ASPIRIN 81 MG PO STA (14:28)
[2023-04-22] MEDS: SODIUM CHLORIDE 0.9% 1,000 ML IV SCH (14:55)
--- NOTE | 2023-04-22 17:08 | P.HPIM ---
History of Present Illness H&P Date: 04/22/23 History of Presenting Illness: Patient is a very pleasant 77-year-old female with a past medical history of CAD status post CABG 3 in 2016 followed by stent placement x2 due to failed bypass currently on aspirin and Plavix, hypertension, hyperlipidemia, and Parkinson's disease. She presented to the emergency department secondary to complaints of newly noted unsteady gait and generalized weakness. Patient reports gait is different than her typical Parkinson walk and she was unable to ambulate per her normal. Patient reports this was sudden onset and she was concerned so she came to ER for evaluation. Upon arrival to the emergency department, patient was found to have mild left-sided facial droop. Patient denied having any headache, lightheadedness, changes in vision or hearing, difficulties or changes with her speech, dysphasia, chest pain, palpitations, shortness of breath, or experiencing any numbness/tingling/weakness in her extremities. She underwent full evaluation in the emergency department. Patient was initially found to have an NIH score of 1. Vital signs obtained showing temp 98.9F, heart rate 68, respiratory rate 16, blood pressure 121/64 and SpO2 of 97% on room air. Patient was taken for CT head and radiology report stating degenerative and remote ischemic white matter changes, tiny punctate hyperdensity within the basal ganglia too small to characterize favoring tiny claudication or petechial hemorrhage recommending MRI. EKG completed showing sinus bradycardia at 52 bpm with T-wave inversion in inferior leads II, III, and aVF which is a new finding when compared to EKG completed 11/18/2017 which was 2 years post CABG. Chest x-r ay completed negative for acute cardiopulmonary process revealing cardiomegaly. CBC, coags, and CMP showing no significant abnormalities. Urinalysis was negative for infection. Troponin negative at less than 0.012. Discussed in detail with the ED physician. Patient being admitted to [facility] unit with telemetry and consult placed to neurology and cardiology. Review of systems: Pertinent positives and negatives as discussed in HPI, a complete review of systems was performed and all other systems are negative. Physical exam: Vital signs reviewed and stable. General: Nontoxic, no distress and appears stated age. Derm: Skin warm and dry, normal coloration for ethnicity. Head: Atraumatic, normocephalic and symmetric. Eyes: EOMs intact, no lid lag, and anicteric sclera Mouth: no lip lesions, mucus membranes moist Cardiovascular: regular rate and rhythm with normal S1S2, systolic murmur, positive posterior tibial pulses bilaterally, and cap refill < 2 seconds. Lungs: Respirations even, regular, and unlabored on room air. Lungs CTA bilaterally, no rhonchi, no rales, no wheezing, and no accessory muscle usage. Abdominal: soft, nontender to palpation, no guarding, no appreciable organomegaly Ext: Movement and sensation equal and intact. No gross muscle atrophy, no edema, no contractures. Neuro: Speech clear, face symmetrical and CN II-XII grossly intact with no noted focal neuro deficits. Normal finger to nose, no arm drop, normal [id number]. GCS 15. Patient does have noted parkinsonian tremor more pronounced right upper extremity. Psych: Alert and oriented to person, place, time, and situation. Appropriate and pleasant affect. Assessment and Plan of Care: Gait instability, Acute changes in proprioception. Parkinson's disease History of CAD status post CABG 3 followed by stent placement 2 due to failed bypass EKG changes in inferior leads Hypertension Hyperlipidemia Patient was initially found to have an NIH score of 1 per ED physician. Vital signs obtained showing temp 98.9F, heart rate 68, respiratory rate 16, blood pressure 121/64 and SpO2 of 97% on room air. Patient was taken for CT head and radiology report stating degenerative and remote ischemic white matter changes, tiny punctate hyperdensity within the basal ganglia too small to characterize favoring tiny claudication or petechial hemorrhage recommending MRI. EKG completed showing sinus bradycardia at 52 bpm with T-wave inversion in inferior leads II, III, and aVF which is a new finding when compared to EKG completed 11/18/2017 which was 2 years post CABG. Chest x-ray completed negative for acute cardiopulmonary process revealing cardiomegaly. Labs completed and reviewed. CBC, coags, and CMP showing no significant abnormalities. Urinalysis was negative for infection. Troponin negative at less than 0.012. Discussed in detail with the ED physician. Patient to be admitted under our services to [facility] unit with telemetry. Consult neurology, appreciate further recommendations. Consult cardiology, appreciate further recommendations. Echocardiogram MRI Lipid profile with a.m. labs Neuro checks every 4 hours and fall precautions placed. Consult PT/OT The patient is admitted with an anticipated greater than 2 midnight stay for evaluation of TIA versus CVA CODE STATUS: Full code DVT prophylaxis: SCDs pending MRI Discussed with: Patient, RN, and ED physician. Anticipated discharge date: Clinical course to determine Anticipated discharge place: Home Patient was seen independently by Nurse Practitioner. This document was prepared using [employer] dictation software. Please allow for errors in treadle cut off saw operator while rare they do occur. I reviewed the documentation as provided by the MITZI above, who is the original author of this note. I agree with the documented assessment and plan, with the following changes: none Past Medical History Past Medical History: Coronary Artery Disease (CAD), Cancer, Chest Pain / Angina, Hyperlipidemia, Hypertension, Myocardial Infarction ([place]), Osteoarthritis (OA) Additional Past Medical History / Comment(s): Parkinson's , squamous cell skin ca rt cheek, Last Myocardial Infarction Date:: unk History of Any Multi-Drug Resistant Organisms: None Reported Past Surgical History: Appendectomy, Coronary Bypass/CABG, Heart Catheterization With Stent, Hysterectomy Additional Past Surgical History / Comment(s): several heart [id number], 08-29-11, 03-22-14. pt stated "i have 4 or 5 stents, triple vessel cabg, fernando cataracts,colonoscopy, sqaumous cell skin ca removed from rt cheek. Past Anesthesia/Blood Transfusion Reactions: Motion Sickness Additional Past Anesthesia/Blood Transfusion Reaction / Comment(s): clausterphobia Date of Last Stent Placement:: 2013 Past Psychological History: No Psychological Hx Reported Past Alcohol Use History: Occasional Past Drug Use History: Marijuana - Past Family History Mother Family Medical History: Cancer Additional Family Medical History / Comment(s): cervical cancer. from sepsis Father Family Medical History: Congestive Heart Failure (CHF), CVA/TIA, Myocardial Infarction ([place]) Medications and Allergies Home Medications Medication Instructions Recorded Confirmed Type Simvastatin [Zocor] 40 mg PO DAILY 11/18/17 04/22/23 History carvediloL [Coreg] 6.25 mg PO BID 11/18/17 04/22/23 History Carbidopa-Levodopa 25-100 mg 1 tab PO QID 04/22/23 04/22/23 History [Sinemet 25-100 mg] lisinopriL [Zestril] 5 mg PO DAILY 04/22/23 04/22/23 History rOPINIRole HCL [Requip] 1 mg PO TID 04/22/23 04/22/23 History Aspirin 81 mg PO DAILY 30 Days #30 tab 04/27/23 Rx Ticagrelor [Brilinta] 90 mg PO BID 30 Days #60 tab 04/27/23 Rx Allergies Allergy/AdvReac Type Severity Reaction Status Date / Time lorazepam [From Ativan] AdvReac Hallucinati Verified 04/23/23 18:53 ons Physical Exam Vitals: Vital Signs Temp Pulse Resp BP Pulse Ox 04/22/23 13:15 53 L 18 114/61 96 04/22/23 12:30 49 L 16 94/76 97 04/22/23 11:48 97.5 F L 58 L 20 96 04/22/23 11:37 98.9 F 68 16 121/64 97 Intake and Output 04/21/23 04/22/23 04/22/23 22:59 06:59 14:59 Other: Weight 58.967 kg Results CBC & Chem 7: 04/26/23 05:24 04/26/23 05:24 Labs: Abnormal Lab Results - Last 24 Hours (Table) 04/22/23 04/22/23 Range/Units 12:37 12:37 Chloride 108 H (98-107) mmol/L BUN 19 H (7-17) mg/dL Total Protein 6.0 L (6.3-8.2) g/dL Urine Blood Small H (Negative) Urine Mucus Rare H (None) /hpf
[2023-04-22] MEDS: carvediloL 6.25 MG TAB PO SCH (17:29)
[2023-04-22] MEDS: CARBIDOPA-LEVODOPA 25-100 MG 1 EACH TAB PO SCH ×2 (17:29→21:19)
[2023-04-22] MEDS ORDERED: CARBIDOPA-LEVODOPA 10-100 MG 1 EACH TAB PO SCH (18:00)
[2023-04-22] MEDS: ATORVASTATIN 20 MG TAB PO SCH (21:19)
[2023-04-23] MEDS: SODIUM CHLORIDE 0.9% 1,000 ML IV SCH ×2 (00:26→07:46)
--- NOTE | 2023-04-23 07:26 | P.CRDCN ---
History of Present Illness Consult date: 04/23/23 Chief complaint: Generalized weakness History of present illness: The patient is a 77-year-old female patient who sees a manager of compensation out of the town with a past medical history significant for CAD and status post revascularization interim of CABG and stenting with unknown details at this point as well as hypertension and dyslipidemia and history of stroke. She presented to the emergency department after she felt she has been weak and tired and she could not get her self up from sitting position to standing position. Nose.speech. No change in mental status. No symptoms of chest pain or chest discomfort or shortness of breath. She came into the emergency department with an EKG was performed as part of the workup and that showed ST changes appeared to be non-specific. Compared to the EKG from 2018 this one seems to be slightly different in ST changes. The patient currently reports no cardiovascular symptoms of any pain in the chest or any shortness of breath or any dizziness or lightheadedness or any presyncope or syncope. The first set of troponin came in to be unremarkable. She is in process of seeing by the neurology service. Computed tomography scan of the brain was performed and showed no acute abnormalities. The rest of the workup overall came in to be unremarkable. The examination is remarkable for regular rhythm with a systolic murmur right and left upper sternal border with clear breathing sounds bilaterally and no lower extremity edema Assessment Weakness. Rule out TIA/CVA Abnormal EKG was nonspecific changes CAD with prior revascularization Multiple comorbid conditions Plan Rule out acute coronary event. Obtain serial cardiac enzymes Currently the patient is asymptomatic and hemodynamically stable from the cardiac standpoint Obtain an echocardiogram was Doppler Obtain serial cardiac enzymes Follow-up with the patient Past Medical History Past Medical History: Coronary Artery Disease (CAD), Cancer, Chest Pain / Angina, Hyperlipidemia, Hypertension, Myocardial Infarction ([place]), Osteoarthritis (OA) Additional Past Medical History / Comment(s): Parkinson's , squamous cell skin ca rt cheek, Last Myocardial Infarction Date:: unk History of Any Multi-Drug Resistant Organisms: None Reported Past Surgical History: Appendectomy, Coronary Bypass/CABG, Heart Catheterization With Stent, Hysterectomy Additional Past Surgical History / Comment(s): several heart [id number], 08-29-11, 03-22-14. pt stated "i have 4 or 5 stents, triple vessel cabg, fernando cataracts,colonoscopy, sqaumous cell skin ca removed from rt cheek. Past Anesthesia/Blood Transfusion Reactions: Motion Sickness Additional Past Anesthesia/Blood Transfusion Reaction / Comment(s): clausterphobia Date of Last Stent Placement:: 2013 Past Psychological History: No Psychological Hx Reported Past Alcohol Use History: Occasional Past Drug Use History: Marijuana - Past Family History Mother Family Medical History: Cancer Additional Family Medical History / Comment(s): cervical cancer. from sepsis Father Family Medical History: Congestive Heart Failure (CHF), CVA/TIA, Myocardial Infarction ([place]) Medications and Allergies Home Medications Medication Instructions Recorded Confirmed Type Clopidogrel [Plavix] 75 mg PO DAILY 11/18/17 04/22/23 History Simvastatin [Zocor] 40 mg PO DAILY 11/18/17 04/22/23 History carvediloL [Coreg] 6.25 mg PO BID 11/18/17 04/22/23 History Carbidopa-Levodopa 25-100 mg 1 tab PO QID 04/22/23 04/22/23 History [Sinemet 25-100] Repaglinide [Prandin] 0.5 mg PO DAILY 04/22/23 04/22/23 History lisinopriL [Zestril] 5 mg PO DAILY 04/22/23 04/22/23 History rOPINIRole HCL [Requip] 1 mg PO TID 04/22/23 04/22/23 History Allergies Allergy/AdvReac Type Severity Reaction Status Date / Time No Known Allergies Allergy Verified 04/22/23 14:52 Physical Exam Vitals: Vital Signs Temp Pulse Resp BP Pulse Ox 04/23/23 05:00 59 L 15 142/91 97 04/23/23 03:00 69 15 109/97 98 04/23/23 01:00 47 L 15 132/63 96 04/22/23 23:00 47 L 14 129/70 97 04/22/23 22:00 53 L 14 128/78 96 04/22/23 21:10 53 L 16 128/78 97 04/22/23 21:00 64 16 109/80 95 04/22/23 20:00 69 16 98/80 94 L 04/22/23 19:00 62 16 119/62 95 04/22/23 17:26 97.6 F 63 18 158/99 97 04/22/23 15:35 95 04/22/23 15:00 48 L 129/63 04/22/23 14:45 46 L 116/51 04/22/23 14:30 53 L 120/60 04/22/23 14:15 49 L 136/85 04/22/23 13:45 56 L 117/57 04/22/23 13:30 60 100/55 04/22/23 13:15 53 L 18 114/61 98 04/22/23 13:00 50 L 107/62 98 04/22/23 12:45 50 L 94/76 98 04/22/23 12:30 51 L 16 120/100 97 04/22/23 11:48 97.5 F L 58 L 20 96 04/22/23 11:37 98.9 F 68 16 121/64 97 Results 04/22/23 12:37 04/22/23 12:37 Cardiac Enzymes 04/22/23 04/22/23 Range/Units 12:37 12:37 AST 26 (14-36) U/L Troponin I <0.012 (0.000-0.034) ng/mL Coagulation 04/22/23 Range/Units 12:37 PT 11.2 (9.0-12.0) sec APTT 25.5 (22.0-30.0) sec CBC 04/22/23 Range/Units 12:37 WBC 4.1 (3.8-10.6) k/uL RBC 4.37 (3.80-5.40) m/uL Hgb 12.3 (11.4-16.0) gm/dL Hct 37.9 (34.0-46.0) % Plt Count 159 (150-450) k/uL Comprehensive Metabolic Panel 04/22/23 Range/Units 12:37 Sodium 140 (137-145) mmol/L Potassium 4.0 (3.5-5.1) mmol/L Chloride 108 H (98-107) mmol/L Carbon Dioxide 27 (22-30) mmol/L BUN 19 H (7-17) mg/dL Creatinine 0.90 (0.52-1.04) mg/dL Glucose 88 (74-99) mg/dL Calcium 8.9 (8.4-10.2) mg/dL AST 26 (14-36) U/L ALT 6 (4-34) U/L Alkaline Phosphatase 75 (38-126) U/L Total Protein 6.0 L (6.3-8.2) g/dL Albumin 3.7 (3.5-5.0) g/dL Current Medications Generic Name Dose Route Start Last Admin Trade Name Freq PRN Reason Stop Dose Admin Acetaminophen 650 mg 04/22/23 14:25 Acetaminophen Tab 325 Mg Tab PO Q6HR PRN Mild Pain or Fever > 100.5 Aspirin 81 mg 04/23/23 09:00 Aspirin 81 Mg PO DAILY LUIS MANUEL Atorvastatin Calcium 20 mg 04/22/23 21:00 04/22/23 21:19 Atorvastatin 20 Mg Tab PO 20 mg HS LUIS MANUEL Administration Carbidopa/Levodopa 1 each 04/22/23 18:00 04/22/23 21:19 Carbidopa-Levodopa 25-100 Mg 1 Each Tab PO 1 each QID LUIS MANUEL Administration Carvedilol 6.25 mg 04/22/23 17:30 04/22/23 17:29 Carvedilol 6.25 Mg Tab PO 6.25 mg BID-W/MEALS LUIS MANUEL Administration Clopidogrel Bisulfate 75 mg 04/23/23 09:00 Clopidogrel 75 Mg Tab PO DAILY LUIS MANUEL Sodium Chloride 1,000 mls @ 100 mls/hr 04/22/23 14:30 04/23/23 00:26 Saline 0.9% IV 100 mls/hr .Q10H LUIS MANUEL Administration Lisinopril 5 mg 04/23/23 09:00 Lisinopril 5 Mg Tab PO DAILY LUIS MANUEL Naloxone HCl 0.2 mg 04/22/23 14:25 Naloxone 0.4 Mg/Ml 1 Ml Vial IV Q2M PRN Opioid Reversal Ropinirole HCl 1 mg 04/22/23 22:00 04/22/23 21:19 Ropinirole Hcl 1 Mg Tab PO 1 mg TID LUIS MANUEL Administration 04/22/23 12:37 04/22/23 12:37
[2023-04-23] MEDS: ASPIRIN 81 MG PO SCH (07:45)
[2023-04-23] MEDS: carvediloL 6.25 MG TAB PO SCH ×3 (07:46→19:49)
[2023-04-23] MEDS: lisinopriL 5 MG TAB PO SCH (07:46)
[2023-04-23] MEDS: CARBIDOPA-LEVODOPA 25-100 MG 1 EACH TAB PO SCH ×5 (07:46→21:21)
[2023-04-23] MEDS: CLOPIDOGREL 75 MG TAB PO SCH (07:46)
[2023-04-23 09:31] LABS: Chol/HDL Ratio 2.58 Ratio; LDL Cholesterol,Calculated 55.5 mg/dL (0.0-131.0); VLDL Calculation 18.02 mg/dL (5.00-40.00)
--- NOTE | 2023-04-23 14:09 | P.CNNES ---
History of Present Illness Consult date: 04/23/23 Requesting physician: Hong Guerrero Reason for Consult: parkinson's, generalized weakness, r/o cva History of Present Illness: This is a 77-year-old gentleman with history of Parkinson's disease who since to the emergency department because generalized weakness with unsteady gait. Patient stated that recently she's been having difficulty getting out of the chair but denied generalized weakness but just felt like she had a hard time getting out of chair from sitting to standing position assess as she felt her legs were heavy. She stated that her symptoms began a day prior to present in the hospital. She denies of any focal weakness or numbness. She stated that she did not have facial droop and that in the ED it was felt that she had left facial droop which she did not notice. Per the ED note is noted that the patient had generalized weakness with left facial droop but was difficult to assess the severity of the facial droop because of patient had prior surgery on the right side. She stated that she has history of skin cancer and she had some skin cancer removed on the right side. She states that she has history of Parkinson's disease for at least 10 years and she follows up with and in the morning her tremors are the worst. Denies any history of stroke. Some of the workup during this hospital visit consisted of: Lipid panel is triglyceride of 90, cholesterol is 120, LDL is 55 and HDL 46 TSH is a 0.625 CT of the head is reported as degenerative and remote ischemic white matter changes. Tiny punctate hyperdensity within the basal ganglia is too small to characterize. Favor tiny calcification over petechial hemorrhage. Correlate with MRI recommended. I personally reviewed the MRI and I do agree I feel the and seems more calcification but cannot rule out bleed and its very small pencil size there is no edema around it and it's only seen on one cut. Patient the has an old the lacunar stroke over right basal ganglia/lemus radiata on the right. In the ED and was felt the patient had NIH of a 1. No IV TPA since her symptoms began a day prior to present the hospital and the risk outweighed the benefit. Review of Systems Review of system: The 12 point system was reviewed and apparent positive and negative per HPI. Past Medical History Past Medical History: Coronary Artery Disease (CAD), Cancer, Chest Pain / Angina, Hyperlipidemia, Hypertension, Myocardial Infarction ([place]), Osteoarthritis ([place]) Additional Past Medical History / Comment(s): Parkinson's, squamous cell skin ca rt cheek, Last Myocardial Infarction Date:: 2013 History of Any Multi-Drug Resistant Organisms: None Reported Past Surgical History: Appendectomy, Coronary Bypass/CABG, Heart Catheterization With Stent, Hysterectomy Additional Past Surgical History / Comment(s): several heart [id number], 08-29-11, 03-22-14. pt stated "i have 4 or 5 stents, triple vessel cabg, fernando cat aracts,colonoscopy, sqaumous cell skin ca removed from rt cheek. Past Anesthesia/Blood Transfusion Reactions: Motion Sickness Additional Past Anesthesia/Blood Transfusion Reaction / Comment(s): Clausterphobia Date of Last Stent Placement:: 2013 Past Psychological History: No Psychological Hx Reported Smoking Status: Never smoker Past Alcohol Use History: Occasional Past Drug Use History: Marijuana Additional Drug Use History / Comment(s): Pt states occasional use of marijuana years ago. - Past Family History Mother Family Medical History: Cancer Additional Family Medical History / Comment(s): Cervical cancer. from sepsis Father Family Medical History: Congestive Heart Failure (CHF), CVA/TIA, Myocardial Infarction ([place]) Medications and Allergies Home Medications Medication Instructions Recorded Confirmed Type Clopidogrel [Plavix] 75 mg PO DAILY 11/18/17 04/22/23 History Simvastatin [Zocor] 40 mg PO DAILY 11/18/17 04/22/23 History carvediloL [Coreg] 6.25 mg PO BID 11/18/17 04/22/23 History Carbidopa-Levodopa 25-100 mg 1 tab PO QID 04/22/23 04/22/23 History [Sinemet 25-100] Repaglinide [Prandin] 0.5 mg PO DAILY 04/22/23 04/22/23 History lisinopriL [Zestril] 5 mg PO DAILY 04/22/23 04/22/23 History rOPINIRole HCL [Requip] 1 mg PO TID 04/22/23 04/22/23 History Allergies Allergy/AdvReac Type Severity Reaction Status Date / Time No Known Allergies Allergy Verified 04/22/23 14:52 Physical Examination - Vital Signs Vital Signs: Vital Signs Temp Pulse Pulse Resp BP BP Pulse Ox 04/23/23 11:28 55 L 16 138/65 98 04/23/23 08:38 97.4 F L 63 18 163/83 99 04/23/23 07:39 63 04/23/23 05:00 59 L 15 142/91 97 04/23/23 03:00 69 15 109/97 98 04/23/23 01:00 47 L 15 132/63 96 04/22/23 23:00 47 L 14 129/70 97 04/22/23 22:00 53 L 14 128/78 96 04/22/23 21:10 53 L 16 128/78 97 04/22/23 21:00 64 16 109/80 95 04/22/23 20:00 69 16 98/80 94 L 04/22/23 19:00 62 16 119/62 95 04/22/23 17:26 97.6 F 63 18 158/99 97 04/22/23 15:35 95 04/22/23 15:00 48 L 129/63 04/22/23 14:45 46 L 116/51 04/22/23 14:30 53 L 120/60 04/22/23 14:15 49 L 136/85 04/22/23 13:45 56 L 117/57 04/22/23 13:30 60 100/55 04/22/23 13:15 53 L 18 114/61 98 04/22/23 13:00 50 L 107/62 98 04/22/23 12:45 50 L 94/76 98 Intake and Output 04/22/23 04/23/23 04/23/23 22:59 06:59 14:59 Intake Total 120 Balance 120 Intake: Oral 120 Other: Voiding Method Toilet Weight 58.967 kg GENERAL: The patient is sitting in a chair, having lunch and is not in acute distress. NEUROLOGICAL: Higher mental function: The patient is awake, alert, oriented to self, place and time. Patient is following commands. No aphasia and no neglect. Cranial nerves: The pupils are round, equal and reactive to light and accommodation. Visual egan are full to confrontation throughout. Extraocular movement is intact no nystagmus is noted. Facial sensation is normal to touch throughout. The facial strength is left nasolabial flattening. Hearing is mildly to moderately decreased bilaterally to hand rub. Tongue is midline and moved [id number] without any difficulty. No dysarthria is noted. Shoulder shrug is normal bilaterally. Motor: Has moderate tremor resting of right > left hand. The strength is 5 over 5 throughout. Normal tone and bulk. Cerebellum: Normal finger to nose bilaterally. Sensation: Sensation is normal to touch throughout. Reflexes (right/left): 2+ throughout except ankles are 1+. Plantars are mute bilaterally. Results - Laboratory Findings CBC and BMP: 04/22/23 12:37 04/22/23 12:37 Abnormal Lab Findings: Abnormal Labs 04/22/23 04/22/23 12:37 12:37 Chloride 108 H BUN 19 H Total Protein 6.0 L Urine Blood Small H Urine Mucus Rare H Assessment and Plan Assessment: This is a 77-year-old woman with history of Parkinson's who presents because of unsteady gait, generalized weakness and mild left facial droop. Acute ?left facial droop with unsteady gait with generalized weakness per ED team (but per patient had difficulty getting out of chair since felt legs were heavy): NIH stroke scale of L1 in the ED. Rule out stroke vs result of her uncontrolled Parkinson's. On CT of the head patient has a small pencil size hyperdensity over right basal ganglia and it seems more calcification. Cannot rule out a small bleed. Old lacunar stroke over the right basal ganglia/lemus radiata History of Parkinson's disease and seems uncontrolled History of coronary artery disease status post stent and CABG History of myocardial infarctions Plan: MR the brain, 2-D echo is ordered and pending On aspirin 81 mg, Plavix 75mg daily. On Lipitor 20 mg daily at bedtime. Continue neuro checks PT OT and [employer] are consulted On fall precaution For Parkinson's disease she is on Sinemet 25-100 1 tab QID and will increase it to 1.5 tab QID since I feel her Parkinson's is not controlled. She is on Ropinirole 1mg TID. We'll defer the rest of the medical management to primary team For DVT prophylaxis recommend subcu heparin or Lovenox but will defer that decision to the primary team Upon discharge, to continue to follow-up with her neurologist (Dr. Zuluaga) within 1-2 weeks. Thank you consultation Time with Patient: Greater than 30
[2023-04-23] MEDS ORDERED: LORazepam 2 MG/ML INJ IV STA (14:28)
--- NOTE | 2023-04-23 15:26 | CA ---
Transthoracic Echo Report Name: Ivon Choudhury Age: 77 Gender: F : 1945 Exam Date: 04/23/2023 13:46 Exam Location: [facility] Ht (in): 63 Wt (lb): 130 Ordering Physician: Talha Wilkinson Attending/Referring Phys: Take Off Man Beena Porras RDCS Procedure CPT: Indications: Evaluate structure and function Cardiac Hx: Technical Quality: Good Contrast 1: Total Dose (mL): Contrast 2: Total Dose (mL): MEASUREMENTS (Male / Female) Normal Values 2D ECHO LV Diastolic Diameter PLAX 5.5 cm 4.2 - 5.9 / 3.9 - 5.3 cm LV Systolic Diameter PLAX 4.2 cm IVS Diastolic Thickness 1.0 cm 0.6 - 1.0 / 0.6 - 0.9 cm LVPW Diastolic Thickness 1.3 cm 0.6 - 1.0 / 0.6 - 0.9 cm LV Relative Wall Thickness 0.4 RV Internal Dim ED PLAX 2.6 cm LVOT Diameter 2.2 cm LA Systolic Diameter LX 4.1 cm 3.0 - 4.0 / 2.7 - 3.8 cm LV Diastolic Volume MOD BP 95.2 cm??? 67 - 155 / 56 - 104 cm??? LV Systolic Volume MOD BP 58.2 cm??? - 58 / 19 - 49 cm??? LV Ejection Fraction MOD BP 38.9 % >= 55 % LV Cardiac Index MOD BP 1298.4 cm???/min???m??? LV Diastolic Volume MOD 4C 116.3 cm??? LV Systolic Volume MOD 4C 69.7 cm??? LV Ejection Fraction MOD 4C 40.0 % LV Cardiac Index MOD 4C 1632.4 cm???/min???m??? LV Diastolic Length 4C 6.3 cm LV Systolic Length 4C 6.1 cm LV Diastolic Volume MOD 2C 65.5 cm??? LV Systolic Volume MOD 2C 39.7 cm??? LV Ejection Fraction MOD 2C 39.3 % LV Cardiac Index MOD 2C 903.1 cm???/min???m??? LV Diastolic Length 2C 7.6 cm LV Systolic Length 2C 7.5 cm LA Volume 76.8 cm??? 18 - 58 / 22 - 52 cm??? M-MODE Aortic Root Diameter MM 3.1 cm MV E Point Septal Separation 1.4 cm AV Cusp Separation MM 2.1 cm DOPPLER AV Peak Velocity 147.3 cm/s AV Peak Gradient 8.7 mmHg AI Peak Velocity 418.9 cm/s AI Peak Gradient 70.2 mmHg AI Pressure Half Time 684.3 ms MV Area PHT 1.5 cm??? Mitral E Point Velocity 52.3 cm/s Mitral A Point Velocity 88.6 cm/s Mitral E to A Ratio 0.6 MV Deceleration Time 513.0 ms MV E' Velocity 4.0 cm/s Mitral E to MV E' Ratio 13.2 TR Peak Velocity 227.9 cm/s TR Peak Gradient 20.8 mmHg Right Ventricular Systolic Press 24.2 mmHg FINDINGS Left Ventricle Left ventricular ejection fraction is estimated at 40-45 %. Mildly increased posterior wall thickness. Mildly increased left ventricular diastolic diameter. Mildly increased left ventricular systolic volume. Moderately decreased left ventricular ejection fraction. Basel inferior hypokinesis, basel and mid inferior hypokinesis Right Ventricle Normal right ventricular size and function. Right ventricular systolic pressure within normal limits. Right Atrium Normal right atrial size. Left Atrium Mildly increased left atrial diameter. Severely increased left atrial volume. Mildly increased left atrial area. Mitral Valve Mitral valve thickened. [id number] mitral regurgitation. Aortic Valve Trileaflet aortic valve. Thickened aortic valve without stenosis. Mild aortic regurgitation. Tricuspid Valve Structurally normal tricuspid valve. Mild tricuspid regurgitation. Pulmonic Valve Structurally normal pulmonic valve. Mild pulmonic regurgitation. Pericardium Normal pericardium. No pericardial effusion. Aorta Normal size aortic root and proximal ascending aorta. CONCLUSIONS Reduced LV systolic function Septal akinesis 2+ mitral regurgitation and thickened aortic valve without significant stenosis Previewed by: Dr. Kulwant Byrd MD (Electronically Signed) Final Date: 23 April 2023 15:25
[2023-04-23 18:37] LABS: Glucose,Whole Blood 65 mg/dL (70-110)
[2023-04-23] MEDS ORDERED: DEXTROSE 50% SYRINGE 50 ML IVP ONE (18:38)
[2023-04-23] MEDS ORDERED: DEXTROSE 50% SYRINGE 50 ML IVP PRN ×2 (18:41)
--- NOTE | 2023-04-23 18:52 | P.PN ---
Subjective Progress Note Date: 04/23/23 Hospital course: Patient is a very pleasant 77-year-old female with a past medical history of CAD status post CABG 3 in 2016 followed by stent placement x2 due to failed bypass currently on aspirin and Plavix, hypertension, hyperlipidemia, and Parkinson's disease. She presented to the emergency department secondary to complaints of newly noted unsteady gait and generalized weakness. Patient reports gait is different than her typical Parkinson walk and she was unable to ambulate per her normal. Patient reports this was sudden onset and she was concerned so she came to ER for evaluation. Upon arrival to the emergency department, patient was found to have mild left-sided facial droop. Patient denied having any headache, lightheadedness, changes in vision or hearing, difficulties or changes with her speech, dysphasia, chest pain, palpitations, shortness of breath, or experiencing any numbness/tingling/weakness in her extremities. She underwent full evaluation in the emergency department. Patient was initially found to have an NIH score of 1. Vital signs obtained showing temp 98.9F, heart rate 68, respiratory rate 16, blood pressure 121/64 and SpO2 of 97% on room air. Patient was taken for CT head and radiology report stating degenerative and remote ischemic white matter changes, tiny punctate hyperdensity within the basal ganglia too small to characterize favoring tiny claudication or petechial hemorrhage recommending MRI. EKG completed showing sinus bradycardia at 52 bpm with T-wave inversion in inferior leads II, III, and aVF which is a new finding when compared to EKG completed 11/18/2017 which was 2 years post CABG. Chest x- ray completed negative for acute cardiopulmonary process revealing cardiomegaly. CBC, coags, and CMP showing no significant abnormalities. Urinalysis was negative for infection. Troponin negative at less than 0.012. Discussed in detail with the ED physician. [facility] with telemetry and consult placed to neurology and cardiology. Physical exam: Patient seen and fully evaluated at bedside this morning. She reports im provement in previously reported weakness but does state she does feel weaker in her left lower extremity than she did previously. Patient states when she was up with staff she didn't notice any dragging of her left foot more like a flapping on the floor almost as if she had snorkeling flippers on her left foot. She continues to deny having any headache, lightheadedness, dizziness, chest pain, palpitations, shortness of breath, dysphasia, her difficulties with speech. Vital signs reviewed and stable. General: Nontoxic, no distress and appears stated age. Derm: Skin warm and dry, normal coloration for ethnicity. Head: Atraumatic, normocephalic and symmetric. Eyes: EOMs intact, no lid lag, and anicteric sclera Mouth: no lip lesions, mucus membranes moist Cardiovascular: regular rate and rhythm with normal S1S2, systolic murmur, positive posterior tibial pulses bilaterally, and cap refill < 2 seconds. Lungs: Respirations even, regular, and unlabored on room air. Lungs CTA bila terally, no rhonchi, no rales, no wheezing, and no accessory muscle usage. Abdominal: soft, nontender to palpation, no guarding, no appreciable organomegaly Ext: Movement and sensation equal and intact. No gross muscle atrophy, no edema, no contractures. Neuro: Speech clear, face symmetrical and CN II-XII grossly intact with no noted focal neuro deficits. Normal finger to nose, no arm drop, normal [id number]. GCS 15. Patient does have noted parkinsonian tremor more pronounced right upper extremity. Psych: Alert and oriented to person, place, time, and situation. Appropriate and pleasant affect. Assessment and Plan of Care: Gait instability, Acute changes in proprioception. Parkinson's disease History of CAD status post CABG 3 followed by stent placement 2 due to failed bypass EKG changes in inferior leads Hypertension Hyperlipidemia Vital signs reviewed this morning. Blood pressure 163/83, heart rate 63, respiratory rate 18, and SpO2 of 99% on room air with temperature of 97.4F. Morning labs reviewed lipid profile unremarkable. TSH normal findings at 0.65. Consult neurology, appreciate further recommendations. Consult cardiology, appreciate further recommendations. Echocardiogram to be completed MRI scheduled for tomorrow morning per RN. Continue Neuro checks every 4 hours and fall precautions placed. Consult PT/OT CODE STATUS: Full code DVT prophylaxis: SCDs pending MRI Discussed with: Patient, RN, and ED physician. Anticipated discharge date: Clinical course to determine Anticipated discharge place: Home Patient was seen independently by Nurse Practitioner. This document was prepared using Dash dictation software. Please allow for errors in bulk plant supervisor while rare they do occur. Talha Wilkinson NP rendered care for this patient independently, reviewed the findings and plan as documented in the note above. I did not physically speak with or examine the patient on this date. Objective - Vital Signs Vital signs: Vital Signs Temp 97.6 F 04/22/23 17:26 Pulse 59 L 04/23/23 05:00 Resp 15 04/23/23 05:00 BP 142/91 04/23/23 05:00 Pulse Ox 97 04/23/23 05:00 FiO2 Intake & Output 04/22/23 04/23/23 04/23/23 18:59 06:59 18:59 Weight 58.967 kg - Labs CBC & Chem 7: 04/24/23 07:42 04/24/23 07:42 Labs: Abnormal Lab Results - Last 24 Hours (Table) 04/22/23 04/22/23 Range/Units 12:37 12:37 Chloride 108 H (98-107) mmol/L BUN 19 H (7-17) mg/dL Total Protein 6.0 L (6.3-8.2) g/dL Urine Blood Small H (Negative) Urine Mucus Rare H (None) /hpf
[2023-04-23 18:54] LABS: Glucose,Whole Blood 215 mg/dL (70-110)
[2023-04-23 19:46] LABS: Glucose,Whole Blood 88 mg/dL (70-110)
[2023-04-23] MEDS: ATORVASTATIN 20 MG TAB PO SCH (19:50)
[2023-04-23 20:47] LABS: Glucose,Whole Blood 66 mg/dL (70-110)
[2023-04-23 21:04] LABS: Glucose,Whole Blood 58 mg/dL (70-110)
[2023-04-23 21:21] LABS: Glucose,Whole Blood 54 mg/dL (70-110)
[2023-04-23 21:39] LABS: Glucose,Whole Blood 65 mg/dL (70-110)
[2023-04-23 22:01] LABS: Glucose,Whole Blood 84 mg/dL (70-110)
[2023-04-23 23:00] LABS: Glucose,Whole Blood 86 mg/dL (70-110)
[2023-04-24] MEDS: SODIUM CHLORIDE 0.9% 1,000 ML IV SCH ×2 (00:07→05:17)
[2023-04-24 00:09] LABS: Glucose,Whole Blood 114 mg/dL (70-110)
[2023-04-24 02:46] LABS: Glucose,Whole Blood 89 mg/dL (70-110)
[2023-04-24 06:45] LABS: Glucose,Whole Blood 65 mg/dL (70-110)
[2023-04-24 07:02] LABS: Glucose,Whole Blood 61 mg/dL (70-110)
--- NOTE | 2023-04-24 07:15 | P.PN ---
Subjective Progress Note Date: 04/24/23 Principal diagnosis: Abnormal EKG The patient is a 77-year-old female patient who sees a scrap sawyer out of the town with a past medical history significant for CAD and status post revascularization interim of CABG and stenting with unknown details at this point as well as hypertension and dyslipidemia and history of stroke. She presented to the emergency department after she felt she has been weak and tired and she could not get her self up from sitting position to standing position. Nose.speech. No change in mental status. No symptoms of chest pain or chest discomfort or shortness of breath. She came into the emergency department with an EKG was performed as part of the workup and that showed ST changes appeared to be non-specific. Compared to the EKG from 2018 this one seems to be slightly different in ST changes. The patient currently reports no cardiovascular symptoms of any pain in the chest or any shortness of breath or any dizziness or lightheadedness or any presyncope or syncope. The first set of troponin came in to be unremarkable. She is in process of seeing by the neurology service. Computed tomography scan of the brain was performed and showed no acute abnormalities. The rest of the workup overall came in to be unremarkable. The patient was seen and evaluated this morning. The first set of troponin is unremarkable. We are awaiting for the second and third sets. The echo showed mildly impaired LV function was EF at 45% with moderate mitral regurgitation. The patient remains asymptomatic and hemodynamic be stable and she continues to have workup regarding CVA. From the cardiac standpoint of view, we will continue the current medical regimen and follow with serial cardiac enzymes. The examination is remarkable for regular rhythm with a systolic murmur right and left upper sternal border with clear breathing sounds bilaterally and no lower extremity edema Assessment Weakness. Rule out TIA/CVA Abnormal EKG was nonspecific changes CAD with prior revascularization Mild cardiomyopathy Valvular heart disease Plan Rule out acute coronary event. Obtain serial cardiac enzymes Further recommendation to follow Objective - Vital Signs Vital signs: Vital Signs Temp 98.1 F 04/23/23 15:14 Pulse 50 L 04/24/23 04:00 Resp 16 04/24/23 04:00 BP 136/69 04/24/23 04:00 Pulse Ox 100 04/24/23 04:00 FiO2 Intake & Output 04/23/23 04/24/23 04/24/23 18:59 06:59 18:59 Intake Total 240 180 Output Total 750 Balance 240 -570 Weight 58.967 kg Intake: Oral 240 180 Output: Urine 750 Other: Voiding Method Toilet External Catheter # Voids 1 1 - Labs CBC & Chem 7: 04/22/23 12:37 04/22/23 12:37 Labs: Abnormal Lab Results - Last 24 Hours (Table) 04/23/23 04/23/23 04/23/23 Range/Units 18:36 18:51 20:46 POC Glucose (mg/dL) 65 L 215 H 66 L (70-110) mg/dL 04/23/23 04/23/23 04/23/23 Range/Units 21:02 21:20 21:35 POC Glucose (mg/dL) 58 L 54 L 65 L (70-110) mg/dL 04/24/23 04/24/23 04/24/23 Range/Units 00:08 06:44 06:59 POC Glucose (mg/dL) 114 H 65 L 61 L (70-110) mg/dL
[2023-04-24 07:21] LABS: Glucose,Whole Blood 47 mg/dL (70-110)
[2023-04-24 07:26] LABS: Glucose,Whole Blood 72 mg/dL (70-110)
[2023-04-24] MEDS: lisinopriL 5 MG TAB PO SCH (07:47)
[2023-04-24] MEDS: CARBIDOPA-LEVODOPA 25-100 MG 1 EACH TAB PO SCH ×4 (07:47→21:45)
[2023-04-24] MEDS: carvediloL 6.25 MG TAB PO SCH ×2 (07:47→17:15)
[2023-04-24] MEDS: ASPIRIN 81 MG PO SCH (07:47)
[2023-04-24] MEDS: CLOPIDOGREL 75 MG TAB PO SCH (07:48)
--- NOTE | 2023-04-24 08:35 | MR ---
EXAMINATION TYPE: MR brain wo con DATE OF EXAM: 04/23/2023 4:43 PM COMPARISON: 04/22/2023. CLINICAL INDICATION:Female, 77 years old with history of abnormal CT head; PHH, Abnormal CT head TECHNIQUE: Multi planar, multi sequence imaging was performed through the brain including: T1, T2, In version recovery, Diffusion weighted imaging, and gradient echo imaging. No gadolinium was given. FINDINGS: There is area of restricted diffusion within the right basal ganglia extending to the lemus radiata. Ventricular dilation in proportion to cerebral atrophy. Right basal ganglia blooming effect compatib le with calcification in the area of abnormality on CT. No high T1 signal seen within this location. Scattered foci of high T2 signal intensity are seen within the periventricular white matter. Midline structures show no abnormality. Diffusion-weighted imaging shows no evidence of restricted diffusion. The susceptibility weighted images do not reveal any evidence for micro-hemorrhage. The bone marrow signal is within normal limits. Paranasal sinuses and mastoid air cells: Mild scattered paranasal sinus disease. Visualized orbits: Bilaterally aphakia. IMPRESSION: 1. Acute/subacute CVA involving the right basal ganglia extending to the right lemus radiata. 2. Nonspecific white matter changes, likely secondary to small vessel ischemic disease. 3. Area within the right basal ganglia on prior CT is felt to correlate with calcification.
--- NOTE | 2023-04-24 08:46 | P.PN ---
Subjective Progress Note Date: 04/24/23 Hospital course: Patient is a very pleasant 77-year-old female with a past medical history of CAD status post CABG 3 in 2016 followed by stent placement x2 due to failed bypass currently on aspirin and Plavix, hypertension, hyperlipidemia, and Parkinson's disease. She presented to the emergency department secondary to complaints of newly noted unsteady gait and generalized weakness. Patient reports gait is different than her typical Parkinson walk and she was unable to ambulate per her normal. Patient reports this was sudden onset and she was concerned so she came to ER for evaluation. Upon arrival to the emergency department, patient was found to have mild left-sided facial droop. Patient denied having any headache, lightheadedness, changes in vision or hearing, difficulties or changes with her speech, dysphasia, chest pain, palpitations, shortness of breath, or experiencing any numbness/tingling/weakness in her extremities. She underwent full evaluation in the emergency department. Patient was initially found to have an NIH score of 1. Vital signs obtained showing temp 98.9F, heart rate 68, respiratory rate 16, blood pressure 121/64 and SpO2 of 97% on room air. Patient was taken for CT head and radiology report stating degenerative and remote ischemic white matter changes, tiny punctate hyperdensity within the basal ganglia too small to characterize favoring tiny claudication or petechial hemorrhage recommending MRI. EKG completed showing sinus bradycardia at 52 bpm with T-wave inversion in inferior leads II, III, and aVF which is a new finding when compared to EKG completed 11/18/2017 which was 2 years post CABG. Chest x- ray completed negative for acute cardiopulmonary process revealing cardiomegaly. CBC, coags, and CMP showing no significant abnormalities. Urinalysis was negative for infection. Troponin negative at less than 0.012. Discussed in detail with the ED physician. Patient being admitted to [facility] unit with telemetry and consult placed to neurology and cardiology. MRI completed and radiology report reviewed showing acute/subacute CVA involving the right basal ganglia extending to the right lemus radiata. Echocardiogram completed and report stating slightly impaired EF of 40-45% with septal akinesis with 2+ mitral regurgitation and thickened aortic valve without significant stenosis TSH normal findings at 0.65. Patient having episodes of confusion and was found to be hypoglycemic with blood glucose level of 65. Hypoglycemia believed to be secondary to decreased oral intake. We will monitor closely. Physical exam: Patient seen and fully evaluated at bedside this morning. She was sitting up in the chair at the bedside. Per RN patient had very difficult night. Patient with moderate confusion and reportedly acting appropriately starting yesterday evening lasting throughout the night. [id number] glucose which revealed patient hypoglycemic with blood glucose level of 65. Orders place for administration of dextrose with hourly glucose checks and hypoglycemic protocol. Patient currently alert to person, place, and situation but does have episodes of confusion. Vital signs reviewed and stable. General: Nontoxic, no distress and appears stated age. Derm: Skin warm and dry, normal coloration for ethnicity. Head: Atraumatic, normocephalic and symmetric. Eyes: EOMs intact, no lid lag, and anicteric sclera Mouth: no lip lesions, mucus membranes moist Cardiovascular: regular rate and rhythm with normal S1S2, systolic murmur, positive posterior tibial pulses bilaterally, and cap refill < 2 seconds. Lungs: Respirations even, regular, and unlabored on room air. Lungs CTA bilaterally, no rhonchi, no rales, no wheezing, and no accessory muscle usage. Abdominal: soft, nontender to palpation, no guarding, no appreciable organomegaly Ext: Movement and sensation equal and intact. No gross muscle atrophy, no edema, no contractures. Neuro: Speech clear, face symmetrical and CN II-XII grossly intact with no noted focal neuro deficits. Normal finger to nose, no arm drop, normal [id number]. GCS 15. Patient does have noted parkinsonian tremor more pronounced right upper extremity. Psych: Alert and oriented to person, place,and situation. But is showing episodes of confusion. Appropriate and pleasant affect. Assessment and Plan of Care: Acute CVA Hypoglycemia, believed to be secondary to decreased oral intake will monitor closely Acute delirium believed to be multifactorial resulting from medication administration, hypoglycemia and acute CVA. Parkinson's disease History of CAD status post CABG 3 followed by stent placement 2 due to failed bypass EKG changes in inferior leads Hypertension Hyperlipidemia Vital signs reviewed this morning. Blood pressure 165/75, heart rate 65, respiratory rate 20, SpO2 of 95% on room air and temperature 97.8F. MRI completed and radiology report reviewed showing acute/subacute CVA involving the right basal ganglia extending to the right lemus radiata. Echocardiogram completed and report stating slightly impaired EF of 40-45% with septal akinesis with 2+ mitral regurgitation and thickened aortic valve without significant stenosis Patient with moderate confusion and reportedly acting appropriately starting yesterday evening lasting throughout the night. [id number] glucose which revealed patient hypoglycemic with blood glucose level of 65. Orders place for administration of dextrose with hourly glucose checks and hypoglycemic protocol. Patient currently alert to person, place, and situation but does have episodes of confusion. Morning labs reviewed. CBC unremarkable with the exception of mild thrombocytopenia with platelet count of 144, BMP showing morning glucose is 72 and magnesium of 1.6. Orders place for magnesium sulfate 2 g IVPB Neurology following, discussed plan of care with neurologist. He is discontinuing Plavix and starting patient on Proventil 90 mg twice daily along with continuation of daily aspirin 81 mg. Cardiology following, reviewed documentation in chart. Continue Neuro checks every 4 hours and fall precautions. PT/OT following. CODE STATUS: Full code DVT prophylaxis: heparin Discussed with: Patient, RN, and neurologist Anticipated discharge date: Clinical course to determine Anticipated discharge place: Home Patient was seen independently by Nurse Practitioner. This document was prepared using [employer] dictation software. Please allow for errors in invoice clerk while rare they do occur. I reviewed the documentation as provided by the MITZI above, who is the original author of this note. I agree with the documented assessment and plan, with the following changes: none Objective - Vital Signs Vital signs: Vital Signs Temp 98.1 F 04/23/23 15:14 Pulse 50 L 04/24/23 04:00 Resp 16 04/24/23 04:00 BP 136/69 04/24/23 04:00 Pulse Ox 100 04/24/23 04:00 FiO2 Intake & Output 04/23/23 04/24/23 04/24/23 18:59 06:59 18:59 Intake Total 240 180 Output Total 750 Balance 240 -570 Weight 58.967 kg Intake: Oral 240 180 Output: Urine 750 Other: Voiding Method Toilet External Catheter # Voids 1 1 - Labs CBC & Chem 7: 04/26/23 05:24 04/26/23 05:24 Labs: Abnormal Lab Results - Last 24 Hours (Table) 04/23/23 04/23/23 04/23/23 Range/Units 18:36 18:51 20:46 POC Glucose (mg/dL) 65 L 215 H 66 L (70-110) mg/dL 04/23/23 04/23/23 04/23/23 Range/Units 21:02 21:20 21:35 POC Glucose (mg/dL) 58 L 54 L 65 L (70-110) mg/dL 04/24/23 04/24/23 04/24/23 Range/Units 00:08 06:44 06:59 POC Glucose (mg/dL) 114 H 65 L 61 L (70-110) mg/dL 04/24/23 Range/Units 07:19 POC Glucose (mg/dL) 47 L (70-110) mg/dL
[2023-04-24 09:50] LABS: HCT 40.7 % (34.0-46.0); HGB 12.8 gm/dL (11.4-16.0); MCH 28.1 pg (25.0-35.0); MCHC 31.4 g/dL (31.0-37.0); MCV 89.3 fL (80.0-100.0); Mean Platelet Volume 7.3; Platelet Count 144 k/uL (150-450); RBC 4.56 m/uL (3.80-5.40); RDW 13.1 % (11.5-15.5); WBC 4.5 k/uL (3.8-10.6)
[2023-04-24] MEDS: DEXTROSE 5%-0.45% NACL 1,000 ML IV SCH ×2 (09:51→17:15)
[2023-04-24 09:57] LABS: Glucose,Whole Blood 93 mg/dL (70-110)
[2023-04-24 10:35] LABS: African American GFR (CKD) 71 (>60 ml/min/1.73 sqM); Anion Gap 8 mmol/L; Blood Urea Nitrogen 11 mg/dL (7-17); Calcium 9.1 mg/dL (8.4-10.2); Carbon Dioxide 26 mmol/L (22-30); Chloride 105 mmol/L (98-107); Glucose 148 mg/dL (74-99); Magnesium 1.6 mg/dL (1.6-2.3); Non-African American GFR(CKD) 62 (>60 ml/min/1.73 sqM); Potassium 3.9 mmol/L (3.5-5.1); Sodium 139 mmol/L (137-145)
[2023-04-24 11:54] LABS: Glucose,Whole Blood 86 mg/dL (70-110)
[2023-04-24 14:02] LABS: Glucose,Whole Blood 109 mg/dL (70-110)
--- NOTE | 2023-04-24 15:08 | P.PN ---
Subjective Progress Note Date: 04/24/23 During this hospital visit the patient the sugar was as low as 40's to 50's. And also yesterday I increased her Sinemet from one tablet 4 times a day to one and half tablet 4 times a day because of her uncontrolled Parkinson's but it seems that the patient was behaving very off per the primary team. I was notified that she was posing for the camera. Objective - Vital Signs Vital signs: Vital Signs Temp 97.8 F 04/24/23 07:41 Pulse 64 04/24/23 13:02 Resp 16 04/24/23 11:11 BP 103/59 04/24/23 11:11 Pulse Ox 98 04/24/23 11:11 FiO2 Intake & Output 04/23/23 04/24/23 04/24/23 18:59 06:59 18:59 Intake Total 240 180 Output Total 750 Balance 240 -570 Weight 58.967 kg Intake: Oral 240 180 Output: Urine 750 Other: Voiding Method Toilet External Catheter Toilet # Voids 1 1 1 # Bowel Movements 1 - Exam GENERAL: The patient is sitting in a chair, having lunch and is not in acute distress. NEUROLOGICAL: Higher mental function: The patient is awake, alert, oriented to self, place and time. Patient is following commands. No aphasia and no neglect. Cranial nerves: The pupils are round, equal and reactive to light and accommodation. Visual egan are full to confrontation throughout. Extraocular movement is intact no nystagmus is noted. Facial sensation is normal to touch throughout. The facial strength is mild left lower facial weakness. Hearing is mildly to moderately decreased bilaterally to hand rub. Tongue is midline and moved [id number] without any difficulty. No dysarthria is noted. Shoulder shrug is normal bilaterally. Motor: Has moderate tremor resting of right > left hand. The strength is 5 over 5 throughout. Normal tone and bulk. Cerebellum: Normal finger to nose bilaterally. Sensation: Sensation is normal to touch throughout. Reflexes (right/left): 2+ throughout except ankles are 1+. Plantars are mute bilaterally. Some of the workup during this hospital visit consisted of: Lipid panel is triglyceride of 90, cholesterol is 120, LDL is 55 and HDL 46 TSH is a 0.625 Hemoglobin [address]1c is 5.4. CT of the head is reported as degenerative and remote ischemic white matter changes. Tiny punctate hyperdensity within the basal ganglia is too small to characterize. Favor tiny calcification over petechial hemorrhage. Correlate with MRI recommended. I personally reviewed the CT and I do agree I feel the and seems more calcification but cannot rule out bleed and its very small pencil size there is no edema around it and it's only seen on one cut. MR the brain is reported as acute/subacute CVA involving the right basal ganglia extending into the right lemus radiata. Nonspecific white matter changes, likely secondary due to small vessel ischemic disease. Area within the right basal ganglia on prior CT is felt to correlate with calcification. I personally reviewed the MRI and I felt the right basal ganglia seems more subacute (especially since changes seen on CT and [facility]). 2-D echo was reported as reduced left ventricle stock function. Septal akinesis. 2 positive mitral regurgitation and thickened aortic valve without significant stenosis. - Labs CBC & Chem 7: 04/24/23 07:42 04/24/23 07:42 Labs: Abnormal Lab Results - Last 24 Hours (Table) 04/23/23 04/23/23 04/23/23 Range/Units 18:36 18:51 20:46 Plt Count (150-450) k/uL Glucose (74-99) mg/dL POC Glucose (mg/dL) 65 L 215 H 66 L (70-110) mg/dL 04/23/23 04/23/23 04/23/23 Range/Units 21:02 21:20 21:35 Plt Count (150-450) k/uL Glucose (74-99) mg/dL POC Glucose (mg/dL) 58 L 54 L 65 L (70-110) mg/dL 04/24/23 04/24/23 04/24/23 Range/Units 00:08 06:44 06:59 Plt Count (150-450) k/uL Glucose (74-99) mg/dL POC Glucose (mg/dL) 114 H 65 L 61 L (70-110) mg/dL 04/24/23 04/24/23 04/24/23 Range/Units 07:19 07:42 07:42 Plt Count 144 L (150-450) k/uL Glucose 148 H (74-99) mg/dL POC Glucose (mg/dL) 47 L (70-110) mg/dL Assessment and Plan Assessment: This is a 77-year-old woman with history of Parkinson's who presents because of unsteady gait, generalized weakness and mild left facial droop. Subacute left basal ganglia ischemic stroke extending to lemus radiata (presented with left facial droop, unsteady gait and generalized weakness. Patient felt leg were heavy). NIH stroke scale is 1 in ED. Encephalopathy due to multifactorial: Hypoglycemia as low as 40s to 50s as well as increase in dopamine from sinemet. Metabolic encephalopathy--improved Hypoglycemia History of Parkinson's disease and seems uncontrolled History of coronary artery disease status post stent and CABG History of myocardial infarctions Plan: MRI the brain revealed acute subacute right basal ganglia extending to lemus radiata stroke. I felt was more subacute right basal ganglia. There is no bleeding noted. I ordered carotid duplex On aspirin 81 mg, Plavix 75mg daily. But since the patient failed her home dose of Plavix recommended Brilinta 90mg 1 tab bid. On Lipitor 20 mg daily at bedtime. Continue neuro checks PT OT and [employer] are consulted On fall precaution 2-D echo it is reported as septal akinesis with 2 positive march regurgitation thickened aortic valve without significant stenosis. We'll defer the management to the primary or cardiology team. For Parkinson's disease she is on Sinemet 25-100 1 tab QID and yesterday that was increased to one half tablets 4 times a day but patient could not tolerate the increase and had confusion and behaving very off. She stated that this happen in the past with the increased dose. Also she has hypoglycemia that can also contribute to her behavioral. I decreased the dose back to 1 tablet 4 times a day. She is on Ropinirole 1mg TID. We'll defer the rest of the medical management to primary team. Please avoid hypoglycemic events. For DVT prophylaxis started on subcu heparin 5000U every 12 hours. Upon discharge, to continue to follow-up with her neurologist (Dr. Zuluaga) within 1-2 weeks. Plan discussed with the patient, her friend was at bedside and the primary team DOLLY OPERATOR. Time with Patient: Less than 30
[2023-04-24 16:02] LABS: Glucose,Whole Blood 85 mg/dL (70-110)
--- NOTE | 2023-04-24 16:40 | US ---
EXAMINATION TYPE: US carotid duplex BILAT DATE OF EXAM: 04/24/2023 COMPARISON: NONE CLINICAL INDICATION: Female, 77 years old with history of stroke; TECHNIQUE: Carotid duplex ultrasound examination. Indirect Doppler criteria was utilized. FINDINGS: EXAM MEASUREMENTS: RIGHT: Peak Systolic Velocity (PSV) cm/sec ----- Right CCA: 84.5 ----- Right ICA: 97.7 ----- Right ECA: 121.0 ICA/CCA ratio: 1.2 RIGHT: End Diastole cm/sec ----- Right CCA: 17.5 ----- Right ICA: 19.7 ----- Right ECA: 0.0 LEFT: Peak Systolic Velocity (PSV) cm/sec ----- Left CCA: 114.9 ----- Left ICA: 92.3 ----- Left ECA: 62.8 ICA/CCA ratio: 0.8 LEFT: End Diastole cm/sec ----- Left CCA: 22.3 ----- Left ICA: 17.8 ----- Left ECA: 8.6 VERTEBRALS (direction of flow): Right Vertebral: Antegrade Left Vertebral: Antegrade Rhythm: Normal THERAPEUTIC RADIOLOGIST NOTES: Extremely tortuous vessels bilaterally. No significant stenosis identified. Plaque noted at bulbs bilaterally. IMPRESSION: Less than 50% stenosis of the bilateral carotid bifurcations. Criteria for Assigning % of Stenosis / Diameter reduction (Estimation based on the indirect measurements of the internal carotid artery velocities (ICA PSV). 1. Normal (no stenosis)=ICA PSV < 125 cm/s: ratio < 2.0: ICA EDV<40 cm/s. 2. Less than 50% stenosis=ICA PSV < 125 cm/s: ratio < 2.0: ICA EDV<40 cm/s. 3. 50 to 69% stenosis=ICA PSV of 125 to 230 cm/s: ration 2.0 ? 4.0: ICA EDV 40-100 cm/s. 4. Greater than 70% stenosis to near occlusion= ICA PSV > 230 cm/s: ratio > 4.0: ICA EDV > 100 cm/s. 5. Near occlusion= ICA PSV velocities may be low or undetectable: variable ratio and ICA EDV. 6. Total occlusion=unable to detect flow.
[2023-04-24 18:15] LABS: Glucose,Whole Blood 112 mg/dL (70-110)
[2023-04-24] MEDS: MAGNESIUM SULFATE-D5W PMX 1 GM in DEXTROSE/WATER 1 100ML.BAG IVPB SCH ×2 (18:52→21:45)
[2023-04-24 20:15] LABS: Glucose,Whole Blood 100 mg/dL (70-110)
[2023-04-24] MEDS: HEPARIN SODIUM,PORCINE/PF 5,000 UNIT/0.5 ML SYRINGE SQ SCH (21:44)
[2023-04-24] MEDS: TICAGRELOR 90 MG TAB PO SCH (21:45)
[2023-04-24] MEDS: ATORVASTATIN 20 MG TAB PO SCH (21:45)
[2023-04-24 23:11] LABS: Glucose,Whole Blood 102 mg/dL (70-110)
[2023-04-25 00:29] LABS: Glucose,Whole Blood 95 mg/dL (70-110)
[2023-04-25 04:48] LABS: Glucose,Whole Blood 79 mg/dL (70-110)
[2023-04-25 06:08] LABS: Glucose,Whole Blood 95 mg/dL (70-110)
[2023-04-25] MEDS: carvediloL 6.25 MG TAB PO SCH ×2 (06:17→17:12)
[2023-04-25] MEDS: DEXTROSE 5%-0.45% NACL 1,000 ML IV SCH ×3 (06:18→22:00)
--- NOTE | 2023-04-25 07:22 | P.PN ---
Subjective Progress Note Date: 04/25/23 Principal diagnosis: Abnormal EKG The patient is a 77-year-old female patient who sees a castables worker out of the town with a past medical history significant for CAD and status post revascularization interim of CABG and stenting with unknown details at this point as well as hypertension and dyslipidemia and history of stroke. She presented to the emergency department after she felt she has been weak and tired and she could not get her self up from sitting position to standing position. Nose.speech. No change in mental status. No symptoms of chest pain or chest discomfort or shortness of breath. She came into the emergency department with an EKG was performed as part of the workup and that showed ST changes appeared to be non-specific. Compared to the EKG from 2018 this one seems to be slightly different in ST changes. The patient currently reports no cardiovascular symptoms of any pain in the chest or any shortness of breath or any dizziness or lightheadedness or any presyncope or syncope. The first set of troponin came in to be unremarkable. She is in process of seeing by the neurology service. Computed tomography scan of the brain was performed and showed no acute abnormalities. The rest of the workup overall came in to be unremarkable. The patient was seen and evaluated this morning. The first set of troponin is unremarkable. We are awaiting for the second and third sets. The echo showed mildly impaired LV function was EF at 45% with moderate mitral regurgitation. The patient remains asymptomatic and hemodynamic be stable and she continues to have workup regarding CVA. From the cardiac standpoint of view, we will continue the current medical regimen and follow with serial cardiac enzymes. 04/25/2023 The patient was seen and evaluated this morning. Apparently she continues to have a change in mental status and hallucination but she seems stable from the cardiac vascular standpoint overview, interim of any chest pain or chest discomfort or shortness of breath. She is hemodynamically stable. The echo revealed mildly impaired LV function was EF around 45% with moderate mitral regurgitation. From the cardiac standpoint of view, I would continue the current medical regimen. The neurology service is on the case regarding possible CVA/TIA. The examination is remarkable for regular rhythm with a systolic murmur right an d left upper sternal border with clear breathing sounds bilaterally and no lower extremity edema Assessment Weakness. Rule out TIA/CVA Abnormal EKG was nonspecific changes. Acute coronary syndrome was ruled out with serial cardiac enzymes came in to be unremarkable CAD with prior revascularization Mild cardiomyopathy Valvular heart disease Plan Acute coronary event was ruled out Continue the current medical regimen Objective - Vital Signs Vital signs: Vital Signs Temp 98.0 F 04/25/23 04:00 Pulse 62 04/25/23 04:00 Resp 19 04/25/23 04:00 BP 149/84 04/25/23 04:00 Pulse Ox 99 04/25/23 04:00 FiO2 Intake & Output 04/24/23 04/25/23 04/25/23 18:59 06:59 18:59 Other: Voiding Method Toilet Toilet # Voids 1 2 # Bowel Movements 1 - Labs CBC & Chem 7: 04/24/23 07:42 04/24/23 07:42 Labs: Abnormal Lab Results - Last 24 Hours (Table) 04/24/23 04/24/23 04/24/23 Range/Units 07:19 07:42 07:42 Plt Count 144 L (150-450) k/uL Glucose 148 H (74-99) mg/dL POC Glucose (mg/dL) 47 L (70-110) mg/dL 04/24/23 Range/Units 18:06 Plt Count (150-450) k/uL Glucose (74-99) mg/dL POC Glucose (mg/dL) 112 H (70-110) mg/dL
[2023-04-25 08:00] LABS: Glucose,Whole Blood 67 mg/dL (70-110)
[2023-04-25 08:17] LABS: Glucose,Whole Blood 84 mg/dL (70-110)
[2023-04-25] MEDS: HEPARIN SODIUM,PORCINE/PF 5,000 UNIT/0.5 ML SYRINGE SQ SCH ×2 (08:18→20:43)
[2023-04-25] MEDS: CARBIDOPA-LEVODOPA 25-100 MG 1 EACH TAB PO SCH ×4 (08:19→20:43)
[2023-04-25] MEDS: ASPIRIN 81 MG PO SCH (08:19)
[2023-04-25] MEDS: lisinopriL 5 MG TAB PO SCH (08:19)
[2023-04-25] MEDS: TICAGRELOR 90 MG TAB PO SCH ×2 (08:19→20:43)
[2023-04-25 10:09] LABS: Glucose,Whole Blood 135 mg/dL (70-110)
[2023-04-25 12:03] LABS: Glucose,Whole Blood 76 mg/dL (70-110)
--- NOTE | 2023-04-25 13:51 | P.PN ---
Subjective Progress Note Date: 04/25/23 The patient seen at bedside and she denies of any new weakness numbness. No further episodes of the significant confusion. Seems the patient continues to have hypoglycemic event and the today had the sugar level LXVII. Objective - Vital Signs Vital signs: Vital Signs Temp 97.4 F L 04/25/23 11:20 Pulse 57 L 04/25/23 11:20 Resp 16 04/25/23 11:20 BP 118/55 04/25/23 11:20 Pulse Ox 99 04/25/23 11:20 FiO2 Intake & Output 04/24/23 04/25/23 04/25/23 18:59 06:59 18:59 Intake Total 360 Output Total 500 Balance -140 Intake: Oral 360 Output: Urine 500 Other: Voiding Method Toilet Toilet Toilet # Voids 1 2 # Bowel Movements 1 - Exam GENERAL: The patient is sitting in a chair, having lunch and is not in acute di stress. NEUROLOGICAL: Higher mental function: The patient is awake, alert, oriented to self, place and time. Patient is following commands. No aphasia and no neglect. Cranial nerves: The pupils are round, equal and reactive to light and accommodation. Visual egan are full to confrontation throughout. Extraocular movement is intact no nystagmus is noted. Facial sensation is normal to touch throughout. The facial strength is mild left lower facial weakness. Hearing is mildly to moderately decreased bilaterally to hand rub. Tongue is midline and moved [id number] without any difficulty. No dysarthria is noted. Shoulder shrug is normal bilaterally. Motor: Has moderate tremor resting of right > left hand. The strength is 5 over 5 throughout. Normal tone and bulk. Cerebellum: Normal finger to nose bilaterally. Sensation: Sensation is normal to touch throughout. Reflexes (right/left): 2+ throughout except ankles are 1+. Plantars are mute bilaterally. Some of the workup during this hospital visit consisted of: Lipid panel is triglyceride of 90, cholesterol is 120, LDL is 55 and HDL 46 TSH is a 0.625 Hemoglobin [address]c is 5.4. CT of the head is reported as degenerative and remote ischemic white matter changes. Tiny punctate hyperdensity within the basal ganglia is too small to characterize. Favor tiny calcification over petechial hemorrhage. Correlate w ith MRI recommended. I personally reviewed the CT and I do agree I feel the and seems more calcification but cannot rule out bleed and its very small pencil size there is no edema around it and it's only seen on one cut. MR the brain is reported as acute/subacute CVA involving the right basal ganglia extending into the right lemus radiata. Nonspecific white matter changes, likely secondary due to small vessel ischemic disease. Area within the right basal ganglia on prior CT is felt to correlate with calcification. I personally reviewed the MRI and I felt the right basal ganglia seems more subacute (especially since changes seen on CT and FLAIR). 2-D echo was reported as reduced left ventricle stock function. Septal akinesis. 2 positive mitral regurgitation and thickened aortic valve without significant stenosis. Carotid duplex was reported as less than 50% stenosis of bilateral carotid bifurcation. - Labs CBC & Chem 7: 04/24/23 07:42 04/24/23 07:42 Labs: Abnormal Lab Results - Last 24 Hours (Table) 04/24/23 04/25/23 04/25/23 Range/Units 18:06 07:57 10:08 POC Glucose (mg/dL) 112 H 67 L 135 H (70-110) mg/dL Assessment and Plan Assessment: This is a 77-year-old woman with history of Parkinson's who presents because of unsteady gait, generalized weakness and mild left facial droop. Subacute left basal ganglia ischemic stroke extending to lemus radiata (presented with left facial droop, unsteady gait and generalized weakness. Patient felt leg were heavy). NIH stroke scale is 1 in ED. etiology of stroke seems due to chronic small vessel disease due to her risk factors Encephalopathy due to multifactorial: Hypoglycemia as low as 40s to 50s as well as increase in dopamine from sinemet. Metabolic encephalopathy--improved Hypoglycemia History of Parkinson's disease and seems uncontrolled History of coronary artery disease status post stent and CABG History of myocardial infarctions Plan: MRI the brain revealed acute subacute right basal ganglia extending to lemus radiata stroke. I felt was more subacute right basal ganglia. There is no bleeding noted. On aspirin 81 mg, Plavix 75mg daily. But since the patient failed her home dose of Plavix recommended Brilinta 90mg 1 tab bid. If the patient cannot afford Brilinta then to resume on Plavix. On Lipitor 20 mg daily at bedtime. Continue neuro checks PT OT and EMPLOYMENT AND CLAIMS AIDE are consulted On fall precaution 2-D echo it is reported as septal akinesis with 2 positive march regurgitation thickened aortic valve without significant stenosis. We'll defer the management to the primary or cardiology team. For Parkinson's disease she is resumed on her dose of Sinemet 25-100 1 tab QID. She cannot tolerate a higher dose because of worsening confusion and behavioral issues. She is on Ropinirole 1mg TID. We'll defer the rest of the medical management to primary team. Please avoid hypoglycemic events. For DVT prophylaxis started on subcu heparin 5000U every 12 hours. Upon discharge, to continue to follow-up with her neurologist (Dr. Zuluaga) within 1-2 weeks. Plan discussed with the patient, her friend was at bedside and the primary team REGULATORY AUDITOR. If patient remained stable the no further neurological workup is needed. Time with Patient: Less than 30
[2023-04-25 13:59] LABS: Glucose,Whole Blood 67 mg/dL (70-110)
[2023-04-25 14:20] LABS: Glucose,Whole Blood 91 mg/dL (70-110)
--- NOTE | 2023-04-25 14:59 | P.PN ---
Subjective Progress Note Date: 04/25/23 Hospital course: Patient is a very pleasant 77-year-old female with a past medical history of CAD status post CABG 3 in 2016 followed by stent placement x2 due to failed bypass currently on aspirin and Plavix, hypertension, hyperlipidemia, and Parkinson's disease. She presented to the emergency department secondary to complaints of newly noted unsteady gait and generalized weakness. Patient reports gait is different than her typical Parkinson walk and she was unable to ambulate per her normal. Patient reports this was sudden onset and she was concerned so she came to ER for evaluation. Upon arrival to the emergency department, patient was found to have mild left-sided facial droop. Patient denied having any headache, lightheadedness, changes in vision or hearing, difficulties or changes with her speech, dysphasia, chest pain, palpitations, shortness of breath, or experiencing any numbness/tingling/weakness in her extremities. She underwent full evaluation in the emergency department. Patient was initially found to have an NIH score of 1. Vital signs obtained showing temp 98.9F, heart rate 68, respiratory rate 16, blood pressure 121/64 and SpO2 of 97% on room air. Patient was taken for CT head and radiology report stating degenerative and remote ischemic white matter changes, tiny punctate hyperdensity within the basal ganglia too small to characterize favoring tiny claudication or petechial hemorrhage recommending MRI. EKG completed showing sinus bradycardia at 52 bpm with nonspecific T-wave inversion in inferior leads II, III, and aVF which is a new finding when compared to EKG completed 11/18/2017 which was 2 years post CA BG. Chest x-ray completed negative for acute cardiopulmonary process revealing cardiomegaly. CBC, coags, and CMP showing no significant abnormalities. Urinalysis was negative for infection. Troponin negative at less than 0.012. Discussed in detail with the ED physician. Patient being admitted to [facility] unit with telemetry and consult placed to neurology and cardiology. MRI completed and radiology report reviewed showing acute/subacute CVA involving the right basal ganglia extending to the right lemus radiata. Echocardiogram completed and report stating slightly impaired EF of 40-45% with septal akinesis with 2+ mitral regurgitation and thickened aortic valve without significant stenosis TSH normal findings at 0.65. Patient having episodes of confusion and was found to be hypoglycemic with blood glucose level of 65. Hypoglycemia believed to be secondary to decreased oral intake. We will monitor closely. Physical exam: Patient seen and fully evaluated at bedside this morning. She was sitting up in the bed this morning. Currently she is alert to person, place, time, and situation. Patient continues to have intermittent episodes of confusion but baseline seems to have improved. She has had recurrent episodes of hypoglycemia, and with acute CVA there was concerns for underlying delirium. However, patient able to recall all episodes of confusion without any difficulties and has apologized for inappropriate behavior and would not likely remember this behavior or actions if it was truly delirium. Patient again has had recurrent episodes of hypoglycemia and had Sinemet dose initially increased but because of worsening confusion and behavioral issues was decreased back down to previous home medication dose of 25-100 mg 4 times daily. Vital signs reviewed and stable. General: Nontoxic, no distress and appears stated age. Derm: Skin warm and dry, normal coloration for ethnicity. Head: Atraumatic, normocephalic and symmetric. Eyes: EOMs intact, no lid lag, and anicteric sclera Mouth: no lip lesions, mucus membranes moist Cardiovascular: regular rate and rhythm with normal S1S2, systolic murmur, positive posterior tibial pulses bilaterally, and cap refill < 2 seconds. Lungs: Respirations even, regular, and unlabored on room air. Lungs CTA bilaterally, no rhonchi, no rales, no wheezing, and no accessory muscle usage. Abdominal: soft, nontender to palpation, no guarding, no appreciable organomegaly Ext: Movement and sensation equal and intact. No gross muscle atrophy, no edema, no contractures. Neuro: Speech clear, face symmetrical and CN II-XII grossly intact with no noted focal neuro deficits. Normal finger to nose, no arm drop, normal [id number]. GCS 15. Patient does have noted parkinsonian tremor more pronounced right upper extremity. Psych: Alert and oriented to person, place,and situation. But is showing episodes of confusion. Appropriate and pleasant affect. Assessment and Plan of Care: Acute CVA Recurrent episodes of Hypoglycemia, unclear origin Acute encephalopathy, believed to be multifactorial resulting from medication administration, hypoglycemia and acute CVA. Parkinson's disease History of CAD status post CABG 3 followed by stent placement 2 due to failed bypass Mild cardiomyopathy with impaired EF of 40-45% EKG changes in inferior leads Hypertension Hyperlipidemia -Patient continues to have recurrent episodes of hypoglycemia. I started patient on D5.45% NS infusion yesterday afternoon secondary to repeated episodes of hypoglycemia. Patient has no history of diabetes, TSH normal findings at 0.625 and is on no medications known to cause hypoglycemic episodes. Despite D5.45% NS infusion at 100mLs per hour, patient again continued to have episodes of hypoglycemia with morning glucose of 67. D5.45% NS infusion increased to 125 mL's per hour and order placed for morning cortisol level. -Point of care glucose checks to continue every 2 hours until blood glucose levels are stable. Vital signs reviewed this morning. Blood pressure 151/67, heart rate 62, respiratory rate 16, SpO2 of 96% on room air and temperature 98.1F. Neurology following, discussed plan of care with neurologist. He started patient on Brillintta 90 mg twice daily along with continuation of daily aspirin 81 mg as patient failed to antiplatelet therapy with Plavix and aspirin which resulted in current CVA. -Patient's insurance does not cover Brilinta and patient reports she is unable to afford, consult placed to case management for assistance and possible insurance preauthorization Cardiology following, reviewed documentation in chart. Continue Neuro checks every 4 hours and fall precautions. PT/OT following. CODE STATUS: Full code DVT prophylaxis: heparin Discussed with: Patient, RN, and neurologist Anticipated discharge date: Clinical course to determine Anticipated discharge place: Home Patient was seen independently by Nurse Practitioner. This document was prepared using [employer] dictation software. Please allow for errors in director of music while rare they do occur. Talha Wilkinson NP rendered care for this patient independently, reviewed the findings and plan as documented in the note above. I did not physically speak with or examine the patient on this date. Objective - Vital Signs Vital signs: Vital Signs Temp 98.1 F 04/25/23 08:15 Pulse 62 04/25/23 08:15 Resp 16 04/25/23 08:15 BP 151/67 04/25/23 08:15 Pulse Ox 96 04/25/23 08:15 FiO2 Intake & Output 04/24/23 04/25/23 04/25/23 18:59 06:59 18:59 Intake Total 240 Balance 240 Intake: Oral 240 Other: Voiding Method Toilet Toilet # Voids 1 2 # Bowel Movements 1 - Labs CBC & Chem 7: 04/24/23 07:42 04/24/23 07:42 Labs: Abnormal Lab Results - Last 24 Hours (Table) 04/24/23 04/24/23 04/24/23 Range/Units 07:42 07:42 18:06 Plt Count 144 L (150-450) k/uL Glucose 148 H (74-99) mg/dL POC Glucose (mg/dL) 112 H (70-110) mg/dL 04/25/23 Range/Units 07:57 Plt Count (150-450) k/uL Glucose (74-99) mg/dL POC Glucose (mg/dL) 67 L (70-110) mg/dL
[2023-04-25 16:01] LABS: Glucose,Whole Blood 102 mg/dL (70-110)
[2023-04-25 17:59] LABS: Glucose,Whole Blood 123 mg/dL (70-110)
[2023-04-25 20:02] LABS: Glucose,Whole Blood 90 mg/dL (70-110)
[2023-04-25] MEDS: ATORVASTATIN 20 MG TAB PO SCH (20:43)
[2023-04-25 21:57] LABS: Glucose,Whole Blood 74 mg/dL (70-110)
[2023-04-25 23:52] LABS: Glucose,Whole Blood 112 mg/dL (70-110)
[2023-04-26 01:52] LABS: Glucose,Whole Blood 64 mg/dL (70-110)
[2023-04-26 02:08] LABS: Glucose,Whole Blood 70 mg/dL (70-110)
[2023-04-26 03:58] LABS: Glucose,Whole Blood 75 mg/dL (70-110)
[2023-04-26 05:43] LABS: HCT 37.8 % (34.0-46.0); HGB 12.2 gm/dL (11.4-16.0); MCH 28.6 pg (25.0-35.0); MCHC 32.3 g/dL (31.0-37.0); MCV 88.4 fL (80.0-100.0); Mean Platelet Volume 7.4; Platelet Count 135 k/uL (150-450); RBC 4.28 m/uL (3.80-5.40); RDW 13.2 % (11.5-15.5); WBC 5.8 k/uL (3.8-10.6)
[2023-04-26 05:53] LABS: Glucose,Whole Blood 97 mg/dL (70-110)
[2023-04-26 05:58] LABS: ALT 7 U/L (4-34); AST 25 U/L (14-36); African American GFR (CKD) 68 (>60 ml/min/1.73 sqM); Albumin 3.2 g/dL (3.5-5.0); Alkaline Phosphatase 72 U/L (38-126); Anion Gap 3 mmol/L; Blood Urea Nitrogen 11 mg/dL (7-17); Calcium 8.5 mg/dL (8.4-10.2); Carbon Dioxide 28 mmol/L (22-30); Chloride 105 mmol/L (98-107); Glucose 87 mg/dL (74-99); Magnesium 1.7 mg/dL (1.6-2.3); Non-African American GFR(CKD) 59 (>60 ml/min/1.73 sqM); Potassium 4.1 mmol/L (3.5-5.1); Sodium 136 mmol/L (137-145); Total Bilirubin 0.8 mg/dL (0.2-1.3); Total Protein 5.5 g/dL (6.3-8.2)
[2023-04-26] MEDS: DEXTROSE 5%-0.45% NACL 1,000 ML IV SCH (06:03)
[2023-04-26] MEDS: carvediloL 6.25 MG TAB PO SCH ×2 (06:54→18:29)
--- NOTE | 2023-04-26 07:46 | P.PN ---
Subjective Progress Note Date: 04/26/23 Principal diagnosis: Abnormal EKG The patient is a 77-year-old female patient who sees a tinner automatic out of the town with a past medical history significant for CAD and status post revascularization interim of CABG and stenting with unknown details at this point as well as hypertension and dyslipidemia and history of stroke. She presented to the emergency department after she felt she has been weak and tired and she could not get her self up from sitting position to standing position. Nose.speech. No change in mental status. No symptoms of chest pain or chest discomfort or shortness of breath. She came into the emergency department with an EKG was performed as part of the workup and that showed ST changes appeared to be non-specific. Compared to the EKG from 2018 this one seems to be slightly different in ST changes. The patient currently reports no cardiovascular symptoms of any pain in the chest or any shortness of breath or any dizziness or lightheadedness or any presyncope or syncope. The first set of troponin came in to be unremarkable. She is in process of seeing by the neurology service. Computed tomography scan of the brain was performed and showed no acute abnormalities. The rest of the workup overall came in to be unremarkable. The patient was seen and evaluated this morning. The first set of troponin is unremarkable. We are awaiting for the second and third sets. The echo showed mildly impaired LV function was EF at 45% with moderate mitral regurgitation. The patient remains asymptomatic and hemodynamic be stable and she continues to have workup regarding CVA. From the cardiac standpoint of view, we will continue the current medical regimen and follow with serial cardiac enzymes. 04/25/2023 The patient was seen and evaluated this morning. Apparently she continues to have a change in mental status and hallucination but she seems stable from the cardiac vascular standpoint overview, interim of any chest pain or chest discomfort or shortness of breath. She is hemodynamically stable. The echo revealed mildly impaired LV function was EF around 45% with moderate mitral regurgitation. From the cardiac standpoint of view, I would continue the current medical regimen. The neurology service is on the case regarding possible CVA/TIA. April [id number] The patient was seen and evaluated this morning. She is asymptomatic and stable from a cardiovascular standpoint of view. Her mentation has improved significantly. She reports no pain in the chest and no shortness of breath and no dizziness or lightheadedness and no feeling of heart racing or fluttering and no presyncope or syncope. Neurology service continues to be on the case. From the cardiac vascular standpoint of view, I would continue the current medical regimen and follow-up with the patient on when necessary case The examination is remarkable for regular rhythm with a systolic murmur right and left upper sternal border with clear breathing sounds bilaterally and no lower extremity edema Assessment Weakness. Rule out TIA/CVA Abnormal EKG was nonspecific changes. Acute coronary syndrome was ruled out with serial cardiac enzymes came in to be unremarkable CAD with prior revascularization Mild cardiomyopathy Valvular heart disease Plan Acute coronary event was ruled out Continue the current medical regimen Follow-up with the patient on when necessary case Objective - Vital Signs Vital signs: Vital Signs Temp 98.4 F 04/26/23 02:14 Pulse 56 L 04/26/23 04:00 Resp 18 04/26/23 04:00 BP 156/68 04/26/23 04:00 Pulse Ox 98 04/26/23 04:00 FiO2 Intake & Output 04/25/23 04/26/23 04/26/23 18:59 06:59 18:59 Intake Total 480 540 Output Total 1125 Balance -645 540 Intake: Oral 480 540 Output: Urine 1125 Other: Voiding Method Toilet Toilet # Voids 1 1 - Labs CBC & Chem 7: 04/26/23 05:24 04/26/23 05:24 Labs: Abnormal Lab Results - Last 24 Hours (Table) 04/25/23 04/25/23 04/25/23 Range/Units 07:57 10:08 13:57 Plt Count (150-450) k/uL Sodium (137-145) mmol/L POC Glucose (mg/dL) 67 L 135 H 67 L (70-110) mg/dL Total Protein (6.3-8.2) g/dL Albumin (3.5-5.0) g/dL 04/25/23 04/25/23 04/26/23 Range/Units 17:58 23:50 01:50 Plt Count (150-450) k/uL Sodium (137-145) mmol/L POC Glucose (mg/dL) 123 H 112 H 64 L (70-110) mg/dL Total Protein (6.3-8.2) g/dL Albumin (3.5-5.0) g/dL 04/26/23 04/26/23 Range/Units 05:24 05:24 Plt Count 135 L (150-450) k/uL Sodium 136 L (137-145) mmol/L POC Glucose (mg/dL) (70-110) mg/dL Total Protein 5.5 L (6.3-8.2) g/dL Albumin 3.2 L (3.5-5.0) g/dL
[2023-04-26 08:34] LABS: Glucose,Whole Blood 87 mg/dL (70-110)
[2023-04-26] MEDS: CARBIDOPA-LEVODOPA 25-100 MG 1 EACH TAB PO SCH ×4 (09:02→20:20)
[2023-04-26] MEDS: HEPARIN SODIUM,PORCINE/PF 5,000 UNIT/0.5 ML SYRINGE SQ SCH ×3 (09:02→20:24)
[2023-04-26] MEDS: ASPIRIN 81 MG PO SCH (09:02)
[2023-04-26] MEDS: TICAGRELOR 90 MG TAB PO SCH ×2 (09:03→20:20)
[2023-04-26] MEDS: lisinopriL 5 MG TAB PO SCH (09:03)
[2023-04-26 10:03] LABS: Glucose,Whole Blood 90 mg/dL (70-110)
[2023-04-26] MEDS: MAGNESIUM SULFATE-D5W PMX 1 GM in DEXTROSE/WATER 1 100ML.BAG IVPB SCH ×2 (11:10→13:23)
[2023-04-26 11:55] LABS: Glucose,Whole Blood 81 mg/dL (70-110)
--- NOTE | 2023-04-26 13:31 | P.PN ---
Subjective Progress Note Date: 04/26/23 Hospital course: Patient is a very pleasant 77-year-old female with a past medical history of CAD status post CABG 3 in 2016 followed by stent placement x2 due to failed bypass currently on aspirin and Plavix, hypertension, hyperlipidemia, and Parkinson's disease. She presented to the emergency department secondary to complaints of newly noted unsteady gait and generalized weakness. Patient reports gait is different than her typical Parkinson walk and she was unable to ambulate per her normal. Patient reports this was sudden onset and she was concerned so she came to ER for evaluation. Upon arrival to the emergency department, patient was found to have mild left-sided facial droop. Patient denied having any headache, lightheadedness, changes in vision or hearing, difficulties or changes with her speech, dysphasia, chest pain, palpitations, shortness of breath, or experiencing any numbness/tingling/weakness in her extremities. She underwent full evaluation in the emergency department. Patient was initially found to have an NIH score of 1. Vital signs obtained showing temp 98.9F, heart rate 68, respiratory rate 16, blood pressure 121/64 and SpO2 of 97% on room air. Patient was taken for CT head and radiology report stating degenerative and remote ischemic white matter changes, tiny punctate hyperdensity within the basal ganglia too small to characterize favoring tiny claudication or petechial hemorrhage recommending MRI. EKG completed showing sinus bradycardia at 52 bpm with nonspecific T-wave inversion in inferior leads II, III, and aVF which is a new finding when compared to EKG completed 11/18/2017 which was 2 years post CA BG. Chest x-ray completed negative for acute cardiopulmonary process revealing cardiomegaly. CBC, coags, and CMP showing no significant abnormalities. Urinalysis was negative for infection. Troponin negative at less than 0.012. Discussed in detail with the ED physician. Patient being admitted to MedSur unit with telemetry and consult placed to neurology and cardiology. MRI completed and radiology report reviewed showing acute/subacute CVA involving the right basal ganglia extending to the right lemus radiata. Echocardiogram completed and report stating slightly impaired EF of 40-45% with septal akinesis with 2+ mitral regurgitation and thickened aortic valve without significant stenosis TSH normal findings at 0.65. Patient having episodes of confusion and was found to be hypoglycemic with blood glucose level of 65. Hypoglycemia believed to be secondary to decreased oral intake. Patient was started on D5.45% NS infusion with glucose checks every 2 hours. Morning glucose 97 and patient denies having any complaints. We will positive D5 infusion at this time and continue to monitor glucose levels closely. Physical exam: Patient seen and fully evaluated at bedside this morning. She was sitting up in the bed this morning and denies having any pain or complaints. Patient was on D5.45% infusion overnight 125 mL's per hour, however patient did have another episode of hypoglycemia. Patient is asymptomatic to these hypoglycemic events and is unsure of baseline glucose levels. A.M. Cortisol level resulting at 6. Morning glucose 97. At this time we will pause D5 infusion and monitor blood glucose levels closely. Vital signs reviewed and stable. General: Nontoxic, no distress and appears stated age. Derm: Skin warm and dry, normal coloration for ethnicity. Head: Atraumatic, normocephalic and symmetric. Eyes: EOMs intact, no lid lag, and anicteric sclera Mouth: no lip lesions, mucus membranes moist Cardiovascular: regular rate and rhythm with normal S1S2, systolic murmur, positive posterior tibial pulses bilaterally, and cap refill < 2 seconds. Lungs: Respirations even, regular, and unlabored on room air. Lungs CTA bilaterally, no rhonchi, no rales, no wheezing, and no accessory muscle usage. Abdominal: soft, nontender to palpation, no guarding, no appreciable organomegaly Ext: Movement and sensation equal and intact. No gross muscle atrophy, no edema, no contractures. Neuro: Speech clear, face symmetrical and CN II-XII grossly intact with no noted focal neuro deficits. Normal finger to nose, no arm drop, normal [id number]. GCS 15. Patient does have noted parkinsonian tremor more pronounced right upper extremity. Psych: Alert and oriented to person, place,and situation. But is showing episodes of confusion. Appropriate and pleasant affect. Assessment and Plan of Care: Acute CVA Recurrent episodes of Hypoglycemia, unclear origin Acute encephalopathy, believed to be multifactorial resulting from medication administration, hypoglycemia and acute CVA. Parkinson's disease Hypomagnesemia History of CAD status post CABG 3 followed by stent placement 2 due to failed bypass Mild cardiomyopathy with impaired EF of 40-45% EKG changes in inferior leads Hypertension Hyperlipidemia -Patient remained on D5.45% infusion overnight 125 mL's per hour, however patient did have another documented episode of asymptomatic hypoglycemia. Patient is asymptomatic to these hypoglycemic events and is unsure of baseline glucose levels. A.M. Cortisol level resulting at 6. Morning glucose 97. At this time we will pause D5 infusion and monitor blood glucose levels closely. -Continue Point of care glucose checks to continue every 2 hours until blood glucose levels are stable. -Morning labs reviewed. CBC unremarkable with the exception of mild thrombocytopenia with a count of 135. BMP normal findings. Magnesium slightly low at 1.7. Liver profile unremarkable. -We'll replace her magnesium sulfate 2 g IVPB for replacement of magnesium for level of 1.7. Vital signs reviewed this morning. Blood pressure 146/69, heart rate 52, respiratory rate 16, SpO2 of 96% on room air. Neurology following, discussed plan of care with neurologist. He is recommending continuing patient on Brillintta 90 mg twice daily along with continuation of daily aspirin 81 mg as patient failed to antiplatelet therapy w ith Plavix and aspirin which resulted in current CVA. -Patient's insurance does not cover Brilinta and patient reports she is unable to afford, consult placed to case management for assistance and possible insurance preauthorization Cardiology following, reviewed documentation in chart. Continue Neuro checks every 4 hours and fall precautions. PT/OT following. CODE STATUS: Full code DVT prophylaxis: heparin Discussed with: Patient, RN, and neurologist Anticipated discharge date: Clinical course to determine Anticipated discharge place: Home Patient was seen independently by Nurse Practitioner. This document was prepared using [employer] dictation software. Please allow for errors in sledger while rare they do occur. Objective - Vital Signs Vital signs: Vital Signs Temp 98.4 F 04/26/23 02:14 Pulse 56 L 04/26/23 04:00 Resp 18 04/26/23 04:00 BP 156/68 04/26/23 04:00 Pulse Ox 98 04/26/23 08:19 FiO2 Intake & Output 04/25/23 04/26/23 04/26/23 18:59 06:59 18:59 Intake Total 480 540 Output Total 1125 Balance -645 540 Intake: Oral 480 540 Output: Urine 1125 Other: Voiding Method Toilet Toilet # Voids 1 1 - Labs CBC & Chem 7: 04/26/23 05:24 04/26/23 05:24 Labs: Abnormal Lab Results - Last 24 Hours (Table) 04/25/23 04/25/23 04/25/23 Range/Units 10:08 13:57 17:58 Plt Count (150-450) k/uL Sodium (137-145) mmol/L POC Glucose (mg/dL) 135 H 67 L 123 H (70-110) mg/dL Total Protein (6.3-8.2) g/dL Albumin (3.5-5.0) g/dL 04/25/23 04/26/23 04/26/23 Range/Units 23:50 01:50 05:24 Plt Count 135 L (150-450) k/uL Sodium (137-145) mmol/L POC Glucose (mg/dL) 112 H 64 L (70-110) mg/dL Total Protein (6.3-8.2) g/dL Albumin (3.5-5.0) g/dL 04/26/23 Range/Units 05:24 Plt Count (150-450) k/uL Sodium 136 L (137-145) mmol/L POC Glucose (mg/dL) (70-110) mg/dL Total Protein 5.5 L (6.3-8.2) g/dL Albumin 3.2 L (3.5-5.0) g/dL
[2023-04-26 13:58] LABS: Glucose,Whole Blood 111 mg/dL (70-110)
[2023-04-26 15:59] LABS: Glucose,Whole Blood 110 mg/dL (70-110)
[2023-04-26 17:58] LABS: Glucose,Whole Blood 84 mg/dL (70-110)
[2023-04-26 20:04] LABS: Glucose,Whole Blood 106 mg/dL (70-110)
[2023-04-26] MEDS: ATORVASTATIN 20 MG TAB PO SCH (20:20)
[2023-04-26 22:04] LABS: Glucose,Whole Blood 92 mg/dL (70-110)
[2023-04-27 02:04] LABS: Glucose,Whole Blood 90 mg/dL (70-110)
[2023-04-27 02:04] LABS: Glucose,Whole Blood 86 mg/dL (70-110)
[2023-04-27 04:06] LABS: Glucose,Whole Blood 86 mg/dL (70-110)
[2023-04-27] MEDS: carvediloL 6.25 MG TAB PO SCH (06:03)
[2023-04-27 06:06] LABS: Glucose,Whole Blood 85 mg/dL (70-110)
[2023-04-27] MEDS: HEPARIN SODIUM,PORCINE/PF 5,000 UNIT/0.5 ML SYRINGE SQ SCH (09:36)
[2023-04-27] MEDS: TICAGRELOR 90 MG TAB PO SCH (09:37)
[2023-04-27] MEDS: lisinopriL 5 MG TAB PO SCH (09:37)
[2023-04-27] MEDS: ASPIRIN 81 MG PO SCH (09:37)
[2023-04-27] MEDS: CARBIDOPA-LEVODOPA 25-100 MG 1 EACH TAB PO SCH (09:37)
[2023-04-27 11:21] VITALS: RESP 18
--- NOTE | 2023-04-27 11:38 | P.DS ---
Providers Date of admission: 04/22/23 14:27 Expected date of discharge: 04/27/23 Attending physician: Octaviano Barrett MD Consults: 04/22/23 14:29 Consult Physician Routine Consulting Provider: Kendrick Alcala Consult Reason/Comments: Parkinson's, generalized weakness, rule out CVA Do you want consulting provider notified?: Yes 04/22/23 17:26 Consult Physician Routine Consulting Provider: Tarun Castaneda Consult Reason/Comments: EKG changes, T-wave inversion in inferior leads Do you want consulting provider notified?: Yes [facility] Hospital Course: Discharge Diagnosis: Acute CVA, patient failed to antiplatelet therapy with aspirin and Plavix and being discharged home on aspirin and Brilinta in addition to simvastatin 40 mg daily. Recurrent episodes of Hypoglycemia, it was later found patient was taking her personal home medication Repaglinide which is known to cause hypoglycemia. This medication has been discontined and pt instruted on the importance of discontinuing this medication and to notify PCP of discontinuation of this medication. Blood glucose stable at 104 upon discharge. Hemoglobin A1c is normal at 5.4%. Acute encephalopathy, believed to be multifactorial resulting from medication administration, hypoglycemia and acute CVA. Resolved.. Parkinson's disease. Continue daily medication regimen with Sinemet 25/100 mg 4 times daily. Hypomagnesemia, replaced. History of CAD status post CABG 3 followed by stent placement 2 due to failed bypass. Continue on dual antiplatelet therapy, simvastatin, lisinopril, and carvedilol. Mild cardiomyopathy with impaired EF of 40-45%. Echocardiogram completed 04/23/23 revealing an EF of 40-45%. Patient evaluated by 911 operator and cleared from cardiac perspective for discharge. EKG changes in inferior leads Hypertension Hyperlipidemia Hospital Course: Patient is a very pleasant 77-year-old female with a past medical history of CAD status post CABG 3 in 2016 followed by stent placement x2 due to failed bypass currently on aspirin and Plavix, hypertension, hyperlipidemia, and Parkinson's disease. She presented to the emergency department secondary to complaints of newly noted unsteady gait and generalized weakness. Patient reports gait is different than her typical Parkinson walk and she was unable to ambulate per her normal. Patient reports this was sudden onset and she was concerned so she came to ER for evaluation. Upon arrival to the emergency department, patient was found to have mild left-sided facial droop. Patient denied having any headache, lightheadedness, changes in vision or hearing, difficulties or changes with her speech, dysphasia, chest pain, palpitations, shortness of breath, or experiencing any numbness/tingling/weakness in her extremities. She underwent full evaluation in the emergency department. Patient was initially found to have an NIH score of 1. Vital signs obtained showing temp 98.9F, heart rate 68, respiratory rate 16, blood pressure 121/64 and SpO2 of 97% on room air. Patient was taken for CT head and radiology report stating degenerative and remote ischemic white matter changes, tiny punctate hyperdensity within the basal ganglia too small to characterize favoring tiny claudication or petechial hemorrhage recommending MRI. EKG completed showing sinus bradycardia at 52 bpm with nonspecific T-wave inversion in inferior leads II, III, and aVF which is a new finding when compared to EKG completed 11/18/2017 which was 2 years post CABG. Chest x-ray completed negative for acute cardiopulmonary process revealing cardiomegaly. CBC, coags, and CMP showing no significant abnormalities. Urinalysis was negative for infection. Troponin negative at less than 0.012. Discussed in detail with the ED physician. Patient being admitted to MedSur unit with telemetry and consult placed to neurology and cardiology. MRI completed and radiology report reviewed showing acute/subacute CVA involving the right basal ganglia extending to the right lemus radiata. Echocardiogram completed and report stating slightly impaired EF of 40-45% with septal akinesis with 2+ mitral regurgitation and thickened aortic valve without significant stenosis TSH normal findings at 0.65. Patient having episodes of confusion and was found to be hypoglycemic with blood glucose level of 65. Hypoglycemia believed to be secondary to decreased oral intake. Patient was started on D5.45% NS infusion with glucose checks every 2 hours. Morning glucose 97 and patient denies having any complaints. We will pause D5 infusion at this time and continue to monitor glucose levels closely. It was later found patient was taking her personal home medication Repaglinide which is known to cause hypoglycemia. This medication has been discontined and pt instruted on the importance of discontinuing this medication and to notify PCP of discontinuation of this medication. Patient is medically stable at this time she was evaluated by PT/OT recommending discharge home with home care. Medically, patient is stable at this time. Prescription sent to pharmacy for Brilinta and aspirin. Again Repaglinide was discontinued. No other medication changes made this admission. Patient medically stable for discharge and is being discharged home with [facility] home care including PT/OT, RN, and aide. Patient to follow-up with PCP and neurologist. Physical exam: Vital signs reviewed and stable. General: Nontoxic, no distress and appears stated age. Derm: Skin warm and dry, normal coloration for ethnicity. Head: Atraumatic, normocephalic and symmetric. Eyes: EOMs intact, no lid lag, and anicteric sclera Mouth: no lip lesions, mucus membranes moist Cardiovascular: regular rate and rhythm with normal S1S2, systolic murmur, positive posterior tibial pulses bilaterally, and cap refill < 2 seconds. Lungs: Respirations even, regular, and unlabored on room air. Lungs CTA bilaterally, no rhonchi, no rales, no wheezing, and no accessory muscle usage. Abdominal: soft, nontender to palpation, no guarding, no appreciable organomegaly Ext: Movement and sensation equal and intact. No gross muscle atrophy, no edema, no contractures. Neuro: Speech clear, face symmetrical and CN II-XII grossly intact with no noted focal neuro deficits. GCS 15. Patient does have noted parkinsonian tremors more pronounced right upper extremity. Psych: Alert and oriented to person, place,and situation. But is showing episodes of confusion. Appropriate and pleasant affect. A total of 37 minutes of time were spent preparing this complex discharge summary. Pt was discharged on 04/27/23 to 11:30 AM. Patient was seen independently by Nurse Practitioner. This document was prepared using [employer] dictation software. Please allow for errors in shoe planner while rare they do occur. I reviewed the documentation as provided by the MITZI above, who is the original author of this note. I agree with the documented assessment and plan, with the following changes: none Patient Condition at Discharge: Stable Plan - Discharge Summary Discharge Rx Participant: No New Discharge Prescriptions: New Ticagrelor [Brilinta] 90 mg PO BID 30 Days #60 tab Aspirin 81 mg PO DAILY 30 Days #30 tab Continue Simvastatin [Zocor] 40 mg PO DAILY carvediloL [Coreg] 6.25 mg PO BID rOPINIRole HCL [Requip] 1 mg PO TID lisinopriL [Zestril] 5 mg PO DAILY Carbidopa-Levodopa 25-100 mg [Sinemet 25-100 mg] 1 tab PO QID Discontinued Clopidogrel [Plavix] 75 mg PO DAILY Repaglinide [Prandin] 0.5 mg PO DAILY Discharge Medication List Simvastatin [Zocor] 40 mg PO DAILY 11/18/17 [History] carvediloL [Coreg] 6.25 mg PO BID 11/18/17 [History] Carbidopa-Levodopa 25-100 mg [Sinemet 25-100 mg] 1 tab PO QID 04/22/23 [History] lisinopriL [Zestril] 5 mg PO DAILY 04/22/23 [History] rOPINIRole HCL [Requip] 1 mg PO TID 04/22/23 [History] Aspirin 81 mg PO DAILY 30 Days #30 tab 04/27/23 [Rx] Ticagrelor [Brilinta] 90 mg PO BID 30 Days #60 tab 04/27/23 [Rx] Follow up Appointment(s)/Referral(s): Marge Delgado MD [REFERRING] - 1 Week (Spoke to dental receptionistDiane. Office will call with appointment time) Alexx Clayton MD [Primary Care Provider] - 1-2 days (Office is experiencing aline hnical difficulties with their phone. Please call to schedule appointment) [facility], [NON-STAFF] - Patient Instructions/Handouts: Non-diabetic Hypoglycemia (DC), Ischemic Stroke (GEN) Activity/Diet/Wound Care/Special Instructions: Activity: As tolerated. Take breaks as needed. Diet: Heart healthy and carb consistent diet. Avoid salts, or foods with hidden salts such as canned or boxed foods and frozen dinners. Extra salt makes your heart work harder and traps the fluid in your body for longer. Special Instructions: Take all of your medications as directed and remember to keep all of your doctor 's appointments and follow-up as needed. Due to recurrent episodes of hypoglycemia your home Repaglinide has been discontinued. It is of upmost importance to STOP taking this medication and do not take again, please inform your primary doctor, Dr. Clayton that this medication was discontinued. Thank you for allowing us to participate in your care, it was truly a pleasure having you for our patient!!! Discharge Disposition: HOME WITH HOME HEALTH SERVICES
[2023-04-27 11:40] LABS: Glucose,Whole Blood 104 mg/dL (70-110)
[2023-04-27 12:21] VITALS: BP 112/57; PULSE 48; TEMP 98.4
== END 2023-04-27 15:09 | disposition home health service (06) | DRG 64 ==
LOC: EC 11:34 → 3SCARD 14:27
PROVIDERS: ADMIT Student in an Organized Health Care Education/Training Program; ATTEND Student in an Organized Health Care Education/Training Program
DX: I63.9 Cerebral infarction, unspecified (principal); G93.41 Metabolic encephalopathy; I42.9 Cardiomyopathy, unspecified; D69.6 Thrombocytopenia, unspecified; E16.0 Drug-induced hypoglycemia without coma; G20 Parkinson's disease; T38.3X5A Adverse effect of insulin and oral hypoglycemic [antidiabetic] drugs, initial encounter; R29.701 NIHSS score 1; R29.810 Facial weakness; R00.1 Bradycardia, unspecified; E78.5 Hyperlipidemia, unspecified; I25.10 Atherosclerotic heart disease of native coronary artery without angina pectoris; I10 Essential (primary) hypertension; I34.0 Nonrheumatic mitral (valve) insufficiency; I25.2 Old myocardial infarction; M19.90 Unspecified osteoarthritis, unspecified site; Z79.02 Long term (current) use of antithrombotics/antiplatelets; Z79.899 Other long term (current) drug therapy; Z86.73 Personal history of transient ischemic attack (TIA), and cerebral infarction without residual deficits; Z85.828 Personal history of other malignant neoplasm of skin; Z95.1 Presence of aortocoronary bypass graft; Z95.5 Presence of coronary angioplasty implant and graft
CPT/HCPCS: 36415; 70450; 70551; 71046; 80048; 80053; 80061; 81001; 82533; 83036; 83735; 84443; 84484; 85025; 85027; 85610; 85730; 93005; 93306; 93880; 94760; 96360; 96361; 99285

== ENCOUNTER 2023-05-06 13:10 | Emergency (ER) | payer MEDICARE ==
[2023-05-06] MEDS ORDERED: SODIUM CHLORIDE 0.9% 1,000 ML IV STA (13:43)
[2023-05-06 14:42] LABS: ALT 7 U/L (4-34); AST 27 U/L (14-36); African American GFR (CKD) 59 (>60 ml/min/1.73 sqM); Albumin 3.4 g/dL (3.5-5.0); Alkaline Phosphatase 70 U/L (38-126); Anion Gap 9 mmol/L; Blood Urea Nitrogen 16 mg/dL (7-17); Calcium 8.4 mg/dL (8.4-10.2); Carbon Dioxide 24 mmol/L (22-30); Chloride 107 mmol/L (98-107); Glucose 99 mg/dL (74-99); Non-African American GFR(CKD) 51 (>60 ml/min/1.73 sqM); Potassium 3.6 mmol/L (3.5-5.1); Sodium 140 mmol/L (137-145); Total Bilirubin 1.2 mg/dL (0.2-1.3); Total Protein 5.9 g/dL (6.3-8.2)
[2023-05-06 14:50] LABS: INR 1.1 (<1.2); Prothrombin Time 11.3 sec (9.0-12.0)
--- NOTE | 2023-05-06 15:51 | CT ---
EXAMINATION TYPE: CT brain asafine wo con DATE OF EXAM: 05/06/2023 COMPARISON: 04/22/2023 HISTORY: 77-year-old female dizziness and syncope CT DLP: 1279.3 mGycm Automated exposure control for dose reduction was used. Technique: Examination of the head was done in axial plane without intravenous contrast. Coronal and sagittal reconstructions performed. CT of the cervical spine was obtained in axial plane without intravenous injection of contrast mater ial. Coronal and sagittal reformatted images were obtained from the axial views for evaluation of f ractures, spinal alignment and canal. FINDINGS: Head: There is no evidence of acute intracranial hemorrhage, acute ischemic changes, mass, mass-effect, or extra-axial fluid collection. There is no effacement of cerebral sulci or basal subarachnoid cister ns. There is no hydrocephalus. There is no midline shift. Hopkins-white matter distinction is preserv ed. Mild mucosal thickening ethmoid air cells and maxillary sinuses. Mastoid air cells are well-pneumatiz ed. Rightward nasal septal deviation. Orbits and globes are intact. Atherosclerotic calcifications within the carotid siphons. Hyperostosis frontalis interna. Mild patchy periventricular white matter hypodensities. Cervical spine: No craniocervical junction abnormality, predental space widening, or prevertebral soft tissue swellin g. Degenerative change at the C1 dens articulation. Moderate multilevel facet and uncovertebral joint arthropathy. Mild to moderate degenerative disc disease C5-C7 levels. Disc osteophyte complex at C6/C7 may contrib solomon to mild narrowing of the spinal canal. No acute fracture seen of the cervical spine. Alignment is maintained. Moderate to severe left neuroforaminal stenosis at C4-C5 and moderate on both sides that C5-C6. Sagittal and coronal reformatted images confirm above findings. COMBINED IMPRESSION: 1. No acute intracranial abnormality seen. 2. No acute fracture or malalignment of the cervical spine. Moderate scattered spondylotic change. 3. Mild chronic ethmoid and maxillary sinus disease.
[2023-05-06 16:00] LABS: Basophils % (A) 0 %; Eosinophils # (A) 0.1 k/uL (0-0.7); Eosinophils % (A) 1 %; HCT 37.3 % (34.0-46.0); HGB 12.2 gm/dL (11.4-16.0); Lymphocytes # (A) 0.6 k/uL (1.0-4.8); Lymphocytes % (A) 9 %; MCH 28.5 pg (25.0-35.0); MCHC 32.8 g/dL (31.0-37.0); MCV 86.8 fL (80.0-100.0); Mean Platelet Volume 7.4; Monocytes # (A) 0.2 k/uL (0-1.0); Monocytes % (A) 3 %; Neutrophils # (A) 5.1 k/uL (1.3-7.7); Neutrophils % (A) 85 %; Platelet Count 148 k/uL (150-450); RDW 13.6 % (11.5-15.5)
[2023-05-06 16:23] VITALS: BP 127/71; PULSE 73; RESP 18
[2023-05-06 16:41] LABS: Appearance,Urine Cloudy (Clear); Bacteria,Urine Rare /hpf; Bilirubin,Urine Negative (Negative); Blood,Urine Small (Negative); Color,Urine Light Yellow; Glucose,Urine (UA) Negative (Negative); Ketones,Urine Negative (Negative); Leukocyte Esterase,Urine Large (Negative); Mucus,Urine Rare /hpf; Nitrite,Urine Positive (Negative); Protein,Urine Trace (Negative); RBC,Urine 8 /hpf (0-5); Specific Gravity,Urine 1.008 (1.001-1.035); Squamous Epithelial Cell,Urine <1 /hpf (0-4); Urobilinogen,Urine <2.0 mg/dL (<2.0); WBC,Urine 164 /hpf (0-5)
--- NOTE | 2023-05-06 16:54 | ED ---
Dizziness HPI - General Chief Complaint: Dizziness Stated Complaint: Hypotention Time Seen by Provider: 05/06/23 13:25 Source: patient, EMS Mode of arrival: ambulatory Limitations: no limitations - History of Present Illness Initial Comments: A 77-year-old woman with past medical history significant for Parkinson's presenting to the ED for chief complaint of near-syncope. Patient states that she was in her kitchen when she started to feel like she was going to pass out. Patient states that she was able to walk to the counter and bring herself down slowly. Denies event. Denies loss of consciousness. There is no injury at this time. At this time patient states all symptoms are resolved. Denies chest pain or shortness of breath. No other complaints. - Related Data Home Medications Medication Instructions Recorded Confirmed Simvastatin [Zocor] 40 mg PO DAILY 11/18/17 05/06/23 carvediloL [Coreg] 6.25 mg PO BID 11/18/17 05/06/23 Carbidopa-Levodopa 25-100 mg 1 tab PO QID 04/22/23 05/06/23 [Sinemet 25-100 mg] lisinopriL [Zestril] 5 mg PO DAILY 04/22/23 05/06/23 rOPINIRole HCL [Requip] 1 mg PO TID 04/22/23 05/06/23 Previous Rx's Medication Instructions Recorded Aspirin 81 mg PO DAILY 30 Days #30 tab 04/27/23 Ticagrelor [Brilinta] 90 mg PO BID 30 Days #60 tab 04/27/23 Cephalexin [Keflex] 500 mg PO Q6HR 7 Days #28 cap 05/06/23 Allergies Allergy/AdvReac Type Severity Reaction Status Date / Time lorazepam [From Ativan] AdvReac Hallucinati Verified 05/06/23 14:00 ons Review of Systems ROS Statement: Those systems with pertinent positive or pertinent negative responses have been documented in the HPI. ROS Other: All systems not noted in ROS Statement are negative. Past Medical History Past Medical History: Coronary Artery Disease (CAD), Cancer, Chest Pain / Angina, Hyperlipidemia, Hypertension, Myocardial Infarction (UT), Osteoarthritis (OA) Additional Past Medical History / Comment(s): Parkinson's , squamous cell skin ca rt cheek, Last Myocardial Infarction Date:: unk History of Any Multi-Drug Resistant Organisms: None Reported Past Surgical History: Appendectomy, Coronary Bypass/CABG, Heart Catheterization With Stent, Hysterectomy Additional Past Surgical History / Comment(s): several heart -[id number], 08-29-11, 03-22-14. pt stated "i have 4 or 5 stents, triple vessel cabg, fernando cataracts,colonoscopy, sqaumous cell skin ca removed from rt cheek. Past Anesthesia/Blood Transfusion Reactions: Motion Sickness Additional Past Anesthesia/Blood Transfusion Reaction / Comment(s): clausterphobia Date of Last Stent Placement:: 2013 Past Psychological History: No Psychological Hx Reported Smoking Status: Never smoker Past Alcohol Use History: Occasional Past Drug Use History: None Reported - Past Family History Mother Family Medical History: Cancer Additional Family Medical History / Comment(s): cervical cancer. from sepsis Father Family Medical History: Congestive Heart Failure (CHF), CVA/TIA, Myocardial Infarction (UT) General Exam Limitations: no limitations General appearance: alert, in no apparent distress Respiratory exam: Present: normal lung sounds bilaterally Cardiovascular Exam: Present: regular rate, normal rhythm GI/Abdominal exam: Present: soft Extremities exam: Present: other (Strength and sensation intact bilateral upper and lower extremities) Neurological exam: Present: alert, oriented X3, CN II-XII intact Skin exam: Present: warm, dry Course Vital Signs 05/06/23 05/06/23 05/06/23 13:14 14:24 15:58 Temperature 99.0 F 98.1 F Pulse Rate 55 L 52 L 56 L Pulse Rate [ Healthcare Administrative Assistant ] Respiratory 16 16 17 Rate Blood Pressure 107/77 122/64 140/69 Blood Pressure [Right Arm Sitting] Blood Pressure [Right Arm Standing] Blood Pressure [Right Arm Supine] O2 Sat by Pulse 99 99 100 Oximetry 05/06/23 05/06/23 05/06/23 16:19 16:21 16:23 Temperature Pulse Rate Pulse Rate [ 60 69 73 Healthcare Administrative Assistant ] Respiratory 16 17 18 Rate Blood Pressure Blood Pressure 127/64 [Right Arm Sitting] Blood Pressure 127/71 [Right Arm Standing] Blood Pressure 137/67 [Right Arm Supine] O2 Sat by Pulse 96 100 97 Oximetry Medical Decision Making - Medical Decision Making Was pt. sent in by a medical professional or institution (, PA, VETERINARY INSPECTOR, urgent care, hospital, or senior care...) When possible be specific @ -No Did you speak to anyone other than the patient for history (EMS, parent, family, police, friend...)? What history was obtained from this source @ -No Did you review nursing and triage notes (agree or disagree)? Why? @ -I reviewed and agree with nursing and triage notes Were old charts reviewed (outside hosp., previous admission, EMS record, old E KG, old radiological studies, urgent care reports/EKG's, senior care records)? Report findings @ -No old charts were reviewed Differential Diagnosis (chest pain, altered mental status, abdominal pain women, abdominal pain men, vaginal bleeding, weakness, fever, dyspnea, syncope, headache, dizziness, GI bleed, back pain, seizure, CVA, palpatations, mental hea lth, musculoskeletal)? @ -Differential Dizziness: Benign paroxysmal positional Vertigo, Menieres disease, otitis media, acoustic neuroma, vertebrobasilar insufficiency, cerebellar stroke, encephalitis, hypovolemic, arrhythmia, coronary artery syndrome, anemia, this is not meant to be an all-inclusive list EKG interpreted by me (3pts min.). @ -As above X-rays interpreted by me (1pt min.). @ -None done CT interpreted by me (1pt min.). @ -CT brain/C-spine showed no acute findings. U/S interpreted by me (1pt. min.). @ -None done What testing was considered but not performed or refused? (CT, X-rays, U/S, l abs)? Why? @ -None What meds were considered but not given or refused? Why? @ -None Did you discuss the management of the patient with other professionals (professionals i.e. , PA, VETERINARY INSPECTOR, lab, RT, psych nurse, social service director, commercial real estate assistant, teacher, delinquency prevention officer, nurse case manager)? Give summary @ -No Was smoking cessation discussed for >3mins.? @ -No Was critical care preformed (if so, how long)? @ -No Were there social determinants of health that impacted care today? How? (Homelessness, low income, unemployed, alcoholism, drug addiction, transportation, low edu. Level, literacy, decrease access to med. care, snf, rehab)? @ -No Was there de-escalation of care discussed even if they declined (Discuss DNR or withdrawal of care, Hospice)? DNR status @ -No What co-morbidities impacted this encounter? (DM, HTN, Smoking, COPD, CAD, Cance r, CVA, ARF, Chemo, Hep., AIDS, mental health diagnosis, sleep apnea, morbid obesity)? @ -Parkinson's Was patient admitted / discharged? Hospital course, mention meds given and route, prescriptions, significant lab abnormalities, going to OR and other pertinent info. @ -Discharge. Laboratory studies only significant for UA showing evidence of a UTI, otherwise unremarkable. Imaging of the brain shows no acute findings. Orthostatics while in the ED good. Patient able to ambulate without difficulty. Patient discharged home in stable condition. Discussed return precautions with patient who verbalizes agreement. Undiagnosed new problem with uncertain prognosis? @ -No Drug Therapy requiring intensive monitoring for toxicity (Heparin, Nitro, Insulin, Cardizem)? @ -No Were any procedures done? @ -No Diagnosis/symptom? @ -Dizziness, UTI Acute, or Chronic, or Acute on Chronic? @ -Acute Uncomplicated (without systemic symptoms) or Complicated (systemic symptoms)? @ -Uncomplicated Side effects of treatment? @ -No Exacerbation, Progression, or Severe Exacerbation? @ -No Poses a threat to life or bodily function? How? (Chest pain, [place], UT, pneumonia, PE, COPD, DKA, ARF, appy, cholecystitis, CVA, Diverticulitis, Homicidal, Suicidal, threat to staff... and all critical care pts) @ -No - Lab Data Result diagrams: 05/06/23 15:50 05/06/23 14:06 Lab Results 05/06/23 05/06/23 05/06/23 Range/Units 14:06 14:06 14:06 WBC (3.8-10.6) k/uL RBC (3.80-5.40) m/uL Hgb (11.4-16.0) gm/dL Hct (34.0-46.0) % MCV (80.0-100.0) fL MCH (25.0-35.0) pg MCHC (31.0-37.0) g/dL RDW (11.5-15.5) % Plt Count (150-450) k/uL MPV Neutrophils % % Lymphocytes % % Monocytes % % Eosinophils % % Basophils % % Neutrophils # (1.3-7.7) k/uL Lymphocytes # (1.0-4.8) k/uL Monocytes # (0-1.0) k/uL Eosinophils # (0-0.7) k/uL Basophils # (0-0.2) k/uL PT 11.3 (9.0-12.0) sec INR 1.1 (<1.2) Sodium 140 (137-145) mmol/L Potassium 3.6 (3.5-5.1) mmol/L Chloride 107 (98-107) mmol/L Carbon Dioxide 24 (22-30) mmol/L Anion Gap 9 mmol/L BUN 16 (7-17) mg/dL Creatinine 1.07 H (0.52-1.04) mg/dL Est GFR (CKD-EPI)AfAm 59 (>60 ml/min/1.73 sqM) Est GFR (CKD-EPI)NonAf 51 (>60 ml/min/1.73 sqM) Glucose 99 (74-99) mg/dL Plasma Lactic Acid Britton 0.9 (0.7-2.0) mmol/L Calcium 8.4 (8.4-10.2) mg/dL Total Bilirubin 1.2 (0.2-1.3) mg/dL AST 27 (14-36) U/L ALT 7 (4-34) U/L Alkaline Phosphatase 70 (38-126) U/L Troponin I (0.000-0.034) ng/mL Total Protein 5.9 L (6.3-8.2) g/dL Albumin 3.4 L (3.5-5.0) g/dL Urine Color Urine Appearance (Clear) Urine pH (5.0-8.0) Ur Specific [place] (1.001-1.035) Urine Protein (Negative) Urine Glucose (UA) (Negative) Urine Ketones (Negative) Urine Blood (Negative) Urine Nitrite (Negative) Urine Bilirubin (Negative) Urine Urobilinogen (<2.0) mg/dL Ur Leukocyte Esterase (Negative) Urine RBC (0-5) /hpf Urine WBC (0-5) /hpf Ur Squamous Epith Cells (0-4) /hpf Urine Bacteria (None) /hpf Urine Mucus (None) /hpf 05/06/23 05/06/23 05/06/23 Range/Units 14:06 15:50 16:15 WBC 6.0 (3.8-10.6) k/uL RBC 4.30 (3.80-5.40) m/uL Hgb 12.2 (11.4-16.0) gm/dL Hct 37.3 (34.0-46.0) % MCV 86.8 (80.0-100.0) fL MCH 28.5 (25.0-35.0) pg MCHC 32.8 (31.0-37.0) g/dL RDW 13.6 (11.5-15.5) % Plt Count 148 L (150-450) k/uL MPV 7.4 Neutrophils % 85 % Lymphocytes % 9 % Monocytes % 3 % Eosinophils % 1 % Basophils % 0 % Neutrophils # 5.1 (1.3-7.7) k/uL Lymphocytes # 0.6 L (1.0-4.8) k/uL Monocytes # 0.2 (0-1.0) k/uL Eosinophils # 0.1 (0-0.7) k/uL Basophils # 0.0 (0-0.2) k/uL PT (9.0-12.0) sec INR (<1.2) Sodium (137-145) mmol/L Potassium (3.5-5.1) mmol/L Chloride (98-107) mmol/L Carbon Dioxide (22-30) mmol/L Anion Gap mmol/L BUN (7-17) mg/dL Creatinine (0.52-1.04) mg/dL Est GFR (CKD-EPI)AfAm (>60 ml/min/1.73 sqM) Est GFR (CKD-EPI)NonAf (>60 ml/min/1.73 sqM) Glucose (74-99) mg/dL Plasma Lactic Acid Britton (0.7-2.0) mmol/L Calcium (8.4-10.2) mg/dL Total Bilirubin (0.2-1.3) mg/dL AST (14-36) U/L ALT (4-34) U/L Alkaline Phosphatase (38-126) U/L Troponin I <0.012 (0.000-0.034) ng/mL Total Protein (6.3-8.2) g/dL Albumin (3.5-5.0) g/dL Urine Color Light Yellow Urine Appearance Cloudy H (Clear) Urine pH 6.0 (5.0-8.0) Ur Specific [place] 1.008 (1.001-1.035) Urine Protein Trace H (Negative) Urine Glucose (UA) Negative (Negative) Urine Ketones Negative (Negative) Urine Blood Small H (Negative) Urine Nitrite Positive H (Negative) Urine Bilirubin Negative (Negative) Urine Urobilinogen <2.0 (<2.0) mg/dL Ur Leukocyte Esterase Large H (Negative) Urine RBC 8 H (0-5) /hpf Urine WBC 164 H (0-5) /hpf Ur Squamous Epith Cells <1 (0-4) /hpf Urine Bacteria Rare H (None) /hpf Urine Mucus Rare H (None) /hpf - EKG Data EKG Comments: KG shows sinus bradycardia at [address] or T-wave changes. GA 174, QRS 131, QT/QTc 483/445. Disposition Clinical Impression: Dizziness, UTI (urinary tract infection) Disposition: HOME SELF-CARE Condition: Good Instructions (If sedation given, give patient instructions): Dizziness (ED), Urinary Tract Infection in Women (ED) Prescriptions: Cephalexin [Keflex] 500 mg PO Q6HR 7 Days #28 cap Is patient prescribed a controlled substance at d/c from ED?: No Referrals: Alexx Clayton MD [Primary Care Provider] - 1-2 days Time of Disposition: 17:00
[2023-05-06 17:22] VITALS: TEMP 98
== END 2023-05-06 17:29 | disposition home or self-care (01) ==
LOC: EC 13:10
DX: R42 Dizziness and giddiness (principal); N39.0 Urinary tract infection, site not specified; I25.10 Atherosclerotic heart disease of native coronary artery without angina pectoris; E78.5 Hyperlipidemia, unspecified; I25.2 Old myocardial infarction; M19.90 Unspecified osteoarthritis, unspecified site; I10 Essential (primary) hypertension; Z88.8 Allergy status to other drugs, medicaments and biological substances; Z79.899 Other long term (current) drug therapy
CPT/HCPCS: 36415; 70450; 72125; 80053; 81001; 83605; 84484; 85025; 85610; 93005; 96360; 96361; 99284